=== PATIENT | female | born 1950 | race Caucasian/White ===

== ENCOUNTER → 2017-10-22 02:14 | Outpatient (CLI) | payer MEDICARE, BC, SELFPAY ==
--- NOTE | 2017-10-22 15:00 | DI.REPORT_ITS ---
SYMPTOMS/DIAGNOSIS: OSTEOPENIA, M85.88 DEXA SCAN: Routine examination. The lateral view of the spine shows no compression deformities. Evaluation of the left hip shows a total T score of -1.5 and a Z score of -0.2. This is consistent with osteopenia and an increased fracture risk. This compares with a total T score of -0.4 from 2007. Evaluation of the lumbar spine shows a total T score of -1.5 and a Z score of 0.3. This is consistent with osteopenia and an increased fracture risk. This compares with a total T score of 0.3 from 2007. IMPRESSION: Osteopenia in the left hip and lumbar spine.
== END ==
PROVIDERS: PCP Family Medicine; Visit Provider Family Medicine
DX: M85.88 Other specified disorders of bone density and structure, other site (principal)
CPT/HCPCS: 77080

== ENCOUNTER 2018-01-07 07:38 | Day surgery (SDC) | payer MEDICARE, BC, SELFPAY ==
--- NOTE | 2018-01-07 06:51 | W.COLOREPORT ---
Date of service: 01/07/18 Time of Service: : Colonoscopy Report Date of procedure: 01/07/18 Pre-op diagnosis general: Screening Colonoscopy Post-op diagnosis procedure note: same Procedure: Colonoscopy Surgeon: Leeanna Gilman Anesthesia proc note operative: MAC (Oswald Dize, JOSELINE and Jennifer Hartley CRNA/ ASA 2) Estimated blood loss (mL): 0 Pathology: none sent Complications: None Disposition: same day Indications: Mrs. Judd is a pleasant 67-year-old female who was seen in the office for a colonoscopy. Risks, benefits and complications were reviewed with her and she wished to proceed. No guarantees were given or implied. Prep: Miralax/Dulcolax Procedure Start Time: : Procedure End Time: : Retraction Time: 8 minutes Findings: Normal colon. very tortuous Procedure Description: After informed consent was obtained the patient was taken to the procedure room and placed in a left decubitous position. Monitors were applied and a time out was done. The patients name, date of , procedure, allergies to medications and metal in their body was reviewed. The patient was then sedated. Once sedated and comfortable a rectal exam was done. External exam was normal. Internal exam revealed a normal sphincter tone and no palpable masses. The scope was then introduced and retroflexed. No internal hemorrhoids were identified. The scope was then advanced to the cecum with some difficulty due to tortuousity of her colon. The TI and appendiceal orifice were identified. The prep was adequate. The scope was then slowly retracted over 8 minutes back into the rectum. The scope was removed and the patient was woken up and taken back to Same day surgery in stable condition. The patient tolerated the procedure well and there were no immediate complications. Follow up: The patient should follow up in 10 years unless they develop changes in bowel habits or other new gastrointestinal complaints.
--- NOTE | 2018-01-07 06:54 | PDOC.DSDIS_ITS ---
Discharge Plan Disposition Patient Disposition: HOME Condition: Good Discharge Details Reason For Visit: SCREENING Attending Provider: Leeanna Gilman Primary Care Provider: Katey Alejandro Home Meds and New Rx's Prescriptions: Continue levothyroxine [Synthroid] 50 MCG tablet 150 mcg PO DAILY RF: 0 ibuprofen 400 mg Tablet 2 tab PO PRN PRNRF: 0 Discharge Instructions Instructions: Colonoscopy (DC) Additional Instructions: Findings: Normal bowel Follow up: 10 years New Medications: none Please call if you develop: fevers >101.5 Nausea or Vomiting Abdominal pain that is not transient 1. Because there will be medication in your system for the next 24 hours, you may feel a little sleepy. Your coordination will be affected. Therefore: a. Do not drive or operate dangerous equipment for 24 hours. b. Do not drink alcohol beverages for 24 hours (not even beer). c. Plan to go home and rest for the day. 2. Generally there are no restrictions on your activity after a day or so has gone by, but you may feel a bit fatigued for a few days. 3 After you arrive home you may have a light meal and return to a normal diet as you can tolerate it without feeling sick to your stomach. 4. After surgery, you may feel pain or discomfort. This should be only transient , but if it persists please contact your doctor. 5. If there are any questions regarding the findings of your procedure, please feel free to contact your doctor. 6. If you are unable to contact your doctor with a problem, contact the hospital at [phone]. 7. Continue all your regular medications unless directed otherwise. I understand the above instructions and have no questions. Signature of Patient or Responsible Adult Escort Date/Time Name of Responsible Adult Escort Signature of Nurse Date/Time Stand Alone Forms: Colonoscopy Post Instructions, Nessa Lambert (DSU) Activity:: Activity as Tolerated Diet:: As Tolerated Discharge Orders Discharge Orders: Discharge Order (Routine); Ordered 01/07/18 Ordered By: Leeanna Gilman DS: Diagnosis Discharge Diagnosis (1) Normal colonoscopy: Status: Acute (2) S/P colonoscopy: Status: Acute
[2018-01-07 07:54] VITALS: BP 156/105; PULSE 77; RESP 16; TEMP 35.4; O2SAT 100
[2018-01-07] MEDS: Lactated Ringers 1,000 ML 80 ML IV (08:16)
[2018-01-07 10:27] VITALS: BP 141/62; PULSE 60; RESP 16; TEMP 35.7; O2SAT 100
== END 2018-01-07 10:50 | disposition home or self-care (01) ==
PROVIDERS: PCP Family Medicine; Visit Provider Surgery
PROC: 0DJD8ZZ Inspection of Lower Intestinal Tract, Via Natural or Artificial Opening Endoscopic (ICD-10-PCS; CPT 45378; principal; 2018-01-07 09:15)
DX: Z12.11 Encounter for screening for malignant neoplasm of colon (principal); K63.89 Other specified diseases of intestine
CPT/HCPCS: G0121

== ENCOUNTER → 2018-07-07 14:03 | Outpatient (BNVA) | payer MEDICARE, BC, SELFPAY | PROVIDERS: PCP Family Medicine; Visit Provider Nurse Practitioner Adult Health | DX: G56.22 Lesion of ulnar nerve, left upper limb (principal); E03.9 Hypothyroidism, unspecified | CPT/HCPCS: 95909; 99203; 99214 ==

== ENCOUNTER 2018-10-01 00:53 | Outpatient (CLI) | payer MEDICARE, BC, SELFPAY ==
--- NOTE | 2018-10-01 08:00 | DI.US_ITS ---
SYMPTOM/DIAGNOSIS: ABNL UTERINE BLEEDING, N93.9 PELVIC ULTRASOUND: Transabdominal and transvaginal exams were performed. The uterus is not well seen transabdominally. The uterus measures 5.1 by 2.7 by 3.3 cm. The myometrium appears heterogeneous. There is a 1 cm. posterior myometrial fibroid. A trace amount of fluid is seen within the endometrial cavity. The endometrium does not appear thickened. The ovaries are normal in size and show calcifications. No masses or cysts are seen. There is a prominent left renal pelvis. The right kidney is unremarkable. There is no free fluid in the cul-de-sac. IMPRESSION: Heterogeneous myometrium with small focal fibroid.
== END 2018-10-01 01:13 ==
PROVIDERS: PCP Family Medicine; Visit Provider Family Medicine
DX: N93.9 Abnormal uterine and vaginal bleeding, unspecified (principal); D25.9 Leiomyoma of uterus, unspecified; N85.8 Other specified noninflammatory disorders of uterus
CPT/HCPCS: 76830; 76856

== ENCOUNTER 2019-09-02 10:01 | Outpatient (REF) | payer MEDICARE, BC, SELFPAY ==
[2019-09-02 22:19] LABS: Anion Gap 8.6 mmol/L (3-11); BUN 8 mg/dL (7-18); CO2 28.4 mmol/L (21.0-32.0); CREATININE 0.64 mg/dL (0.55-1.02); Calcium 10.2 mg/dL (8.5-10.1); Calculated LDL 122 mg/dL (<100); Chloride 93 mmol/L (98-107); Cholesterol 228 mg/dL (<200); Glucose 88 mg/dL (74-106); HDL Cholesterol 98 mg/dL (40-60); Potassium 5.1 mmol/L (3.5-5.1); Sodium 130 mmol/L (136-145); TSH (W/Ref FT4) 0.29 uIU/mL (0.36-3.74); Triglyceride 44 mg/dL (<150)
[2019-09-03 10:13] LABS: ALT 36 U/L (14-59); AST 28 U/L (15-37); Albumin 4.8 g/dL (3.4-5.0); Alkaline Phosphatase 89 U/L (46-116)
== END 2019-09-02 10:21 ==
LOC: NCHCN 10:01
PROVIDERS: PCP Family Medicine
DX: I10 Essential (primary) hypertension (principal); E03.9 Hypothyroidism, unspecified
CPT/HCPCS: 80048; 80061; 82040; 84075; 84439; 84443; 84450; 84460

== ENCOUNTER 2019-09-16 10:17 | Outpatient (REF) | payer MEDICARE, BC, SELFPAY ==
[2019-09-16 19:56] LABS: Anion Gap 6.3 mmol/L (3-11); BUN 11 mg/dL (7-18); CO2 28.7 mmol/L (21.0-32.0); CREATININE 0.77 mg/dL (0.55-1.02); Calcium 9.5 mg/dL (8.5-10.1); Chloride 96 mmol/L (98-107); Glucose 87 mg/dL (74-106); Potassium 5.5 mmol/L (3.5-5.1); Sodium 131 mmol/L (136-145); TSH (W/Ref FT4) 0.46 uIU/mL (0.36-3.74)
== END 2019-09-16 10:37 ==
LOC: NCHCN 10:17
PROVIDERS: PCP Family Medicine
DX: I10 Essential (primary) hypertension (principal); E03.9 Hypothyroidism, unspecified
CPT/HCPCS: 80048; 84443

== ENCOUNTER 2019-09-21 16:47 | Outpatient (REF) | payer MEDICARE, BC, SELFPAY ==
[2019-09-21 21:29] LABS: HCT 41.1 % (36.0-46.0); HGB 13.8 g/dL (12.0-15.5); Mean Corp. HGB Concentration 33.6 g/dL (32.0-36.0); Mean Corpuscular Hemoglobin 30.9 pg (27.0-33.0); Mean Corpuscular Volume 91.9 fL (80-95); Mean Platelet Volume 10.1 fL (8.0-11.0); Platelet Count 255 x1000/uL (130-400); RBC 4.47 m/cumm (4.00-5.20); RBC Distribution Width 12.6 % (11.7-14.6); White Blood Cell Count 4.39 k/cumm (4.4-10.8)
[2019-09-21 21:50] LABS: Bilirubin Negative (Negative); Blood Negative (Negative); Clarity Clear (Clear); Glucose Negative (Negative); Ketones Negative (Negative); Leukocyte Esterase Negative (Negative); Nitrite Negative (Negative); Specific Gravity 1.015 (1.005-1.025); Urobilinogen 0.2 EU/dL (Up TO 0.2)
[2019-09-21 21:59] LABS: Bacteria Negative HPF (Negative); C & S Indicated? No; Casts Negative LPF (Negative); Crystals Negative HPF (Negative); Epithelial Cells Rare HPF (Negative); Mucus Negative (Negative); RBC Negative HPF (0-2); WBC Negative HPF (0-5)
[2019-09-21 22:20] LABS: Sodium, Urine 29 mmol/L
[2019-09-22 18:09] LABS: Osmolality, Urine 156 mOsm/kg (150-1,150)
== END 2019-09-21 17:07 ==
LOC: NCHCN 16:47
PROVIDERS: PCP Family Medicine
DX: E87.5 Hyperkalemia (principal); I10 Essential (primary) hypertension
CPT/HCPCS: 82533; 83935; 85027; 81003; 81015; 84300

== ENCOUNTER 2019-09-30 12:01 | Outpatient (REF) | payer MEDICARE, BC, SELFPAY ==
[2019-09-30 20:57] LABS: Anion Gap 8.6 mmol/L (3-11); BUN 12 mg/dL (7-18); CO2 27.4 mmol/L (21.0-32.0); CREATININE 0.74 mg/dL (0.55-1.02); Calcium 9.9 mg/dL (8.5-10.1); Calculated LDL 118 mg/dL (<100); Chloride 97 mmol/L (98-107); Cholesterol 219 mg/dL (<200); Glucose 87 mg/dL (74-106); HDL Cholesterol 92 mg/dL (40-60); Potassium 5.1 mmol/L (3.5-5.1); Sodium 133 mmol/L (136-145); TSH (W/Ref FT4) 1.07 uIU/mL (0.36-3.74); Triglyceride 47 mg/dL (<150)
[2019-09-30 21:15] LABS: FREE T4 1.29 ng/dL (0.76-1.46)
== END 2019-09-30 12:21 ==
LOC: NCHCN 12:01
PROVIDERS: PCP Family Medicine
DX: I10 Essential (primary) hypertension (principal); E87.1 Hypo-osmolality and hyponatremia; E87.5 Hyperkalemia
CPT/HCPCS: 80048; 80061; 84439; 84443

== ENCOUNTER 2019-11-16 09:59 | Outpatient (REF) | payer MEDICARE, BC, SELFPAY ==
[2019-11-16 21:10] LABS: Anion Gap 6.8 mmol/L (3-11); BUN 10 mg/dL (7-18); CO2 29.2 mmol/L (21.0-32.0); CREATININE 0.74 mg/dL (0.55-1.02); Calcium 9.7 mg/dL (8.5-10.1); Chloride 96 mmol/L (98-107); Glucose 61 mg/dL (74-106); Potassium 4.1 mmol/L (3.5-5.1); Sodium 132 mmol/L (136-145); TSH (W/Ref FT4) 5.68 uIU/mL (0.36-3.74)
[2019-11-16 21:40] LABS: FREE T4 1.19 ng/dL (0.76-1.46)
== END 2019-11-16 10:19 ==
LOC: NCHCN 09:59
PROVIDERS: PCP Family Medicine
DX: E03.9 Hypothyroidism, unspecified (principal); E87.5 Hyperkalemia; E87.1 Hypo-osmolality and hyponatremia; I10 Essential (primary) hypertension
CPT/HCPCS: 80048; 84439; 84443

== ENCOUNTER 2019-12-30 11:53 | Outpatient (REF) | payer MEDICARE, BC, SELFPAY ==
[2019-12-30 22:56] LABS: TSH (W/Ref FT4) 0.96 uIU/mL (0.36-3.74)
== END 2019-12-30 12:13 ==
LOC: NCHCN 11:53
PROVIDERS: PCP Family Medicine
DX: E03.9 Hypothyroidism, unspecified (principal)
CPT/HCPCS: 84443

== ENCOUNTER 2020-02-04 03:44 | Outpatient (CLI) | payer MEDICARE, BC, SELFPAY ==
--- NOTE | 2020-02-04 | DI.US_ITS ---
EXAM: US CAROTID CLINICAL HISTORY: SYNCOPE,R55 TECHNIQUE: Ultrasound performed using standard protocol. COMPARISON: US US PELVIS TRANSVAGINAL from 10/01/2018 FINDINGS: Bilateral duplex carotid ultrasound was performed according to the usual protocol. There is bilateral antegrade vertebral flow. There is no visible atheromatous plaque in the carotid circulation. Flow velocities in the common, internal, and external carotid arteries are within normal limits bilat erally. IMPRESSION: No evidence of a hemodynamically significant carotid stenosis. DATA REPOSITORY:
== END 2020-02-04 04:04 ==
PROVIDERS: PCP Family Medicine
DX: R55 Syncope and collapse (principal)
CPT/HCPCS: 93880

== ENCOUNTER 2020-02-17 15:40 | Outpatient (CLI) | payer MEDICARE, BC, SELFPAY ==
--- NOTE | 2020-02-17 | DI.RAD_ITS ---
EXAM: XR KNEE RT 3V AP,LAT,NATALEE CLINICAL HISTORY: KNEE EFFUSION RT M25.461. TECHNIQUE: 2D digital imaging was performed. COMPARISON: No exams were available for comparison FINDINGS: BONES: There is a cortical irregularity in the posterior aspect of the patella seen on the lateral vi ew suspicious for nondisplaced fracture. There is a cortical sclerotic lesion at the posterior aspec t of the proximal tibia best appreciated on the lateral view. JOINTS: The knee is normally aligned. There is a joint effusion. SOFT TISSUE: Normal. IMPRESSION: 1. Findings suspicious for an acute nondisplaced fracture of the patella best appreciated on the late ral view. 2. Joint effusion. 3. Sclerotic cortical lesion at the posterior aspect of the proximal tibia. This area is nonspecific . Further evaluation with an MRI should be considered. DATA REPOSITORY: RADIATION DOSE DELIVERED:
--- NOTE | 2020-02-17 16:46 | DI.VRAD_ITS ---
PROCEDURE INFORMATION: Exam: XR Right Knee Exam date and time: 02/17/2020 3:51 PM Age: 69 years old Clinical indication: Injury or trauma; Fall; Blunt trauma; Knee; Right TECHNIQUE: Imaging protocol: XR Right knee. Views: 3 views. COMPARISON: No relevant images were readily available for comparison purposes. FINDINGS: Bones/joints: Mild osteoarthritic changes of the knee. There is a small suprapatellar effusion. There is cortical irregularity along the inferior and posterior aspect of the patella suspicious for nondisplaced fracture. This is best seen on the lateral view. There is cortical irregularity along the posterior aspect of the proximal tibia also best seen on the lateral projection. Soft tissues: Unremarkable soft tissues. IMPRESSION: 1. Possible acute nondisplaced fracture of the patella. 2. Small suprapatellar effusion. 3. Cortical irregularity along the posterior aspect of the tibia is nonspecific and indeterminate and could be related to stress related injury. Further evaluation with MRI is recommended. Dictated and Authenticated by: Shadi Wood MD. Ordering:MARYBETH Garcia MD
== END 2020-02-17 16:00 ==
PROVIDERS: PCP Family Medicine; Visit Provider Family Medicine
DX: M25.461 Effusion, right knee (principal); R93.6 Abnormal findings on diagnostic imaging of limbs
CPT/HCPCS: 73562

== ENCOUNTER 2020-02-18 09:15 | Outpatient (CLI) | payer MEDICARE, BC, SELFPAY | END 2020-02-18 09:35 | PROVIDERS: PCP Family Medicine; Visit Provider Physician Assistant | DX: S82.001A Unspecified fracture of right patella, initial encounter for closed fracture (principal); W19.XXXA Unspecified fall, initial encounter | CPT/HCPCS: 99214 ==

== ENCOUNTER 2020-03-02 10:23 | Outpatient (CLI) | payer MEDICARE, BC, SELFPAY ==
--- NOTE | 2020-03-02 10:00 | DI.RAD_ITS ---
EXAM: XR KNEE RT 4V AP,LAT,NATALEE,PAT CLINICAL HISTORY: F/u. TECHNIQUE: 2D digital imaging was performed. COMPARISON: CR,XR XR KNEE RT 3V AP,LAT,NATALEE from 02/17/2020 FINDINGS: There is no evidence of acute fracture. Small joint effusion noted. 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 There is no distraction. Mild-moderate degenerative changes evident in the medial and patellof emoral compartments. Again noted is an eccentric lung to truly orientated posteriorly located bone lesion at the metaphysi s-diaphysis junction of the tibia. This appears unchanged. If clinically indicated could be further studied with MRI ensure that this is not an aggressive bone. IMPRESSION: Healing patellar fracture site, as above. Unchanged bone lesion in the proximal tibia. See above. DATA REPOSITORY: RADIATION DOSE DELIVERED:
== END 2020-03-02 10:43 ==
PROVIDERS: PCP Family Medicine; Referring Provider Family Medicine; Visit Provider Physician Assistant
DX: S82.091A Other fracture of right patella, initial encounter for closed fracture (principal); S82.001D Unspecified fracture of right patella, subsequent encounter for closed fracture with routine healing; W19.XXXD Unspecified fall, subsequent encounter
CPT/HCPCS: 99213; 73564

== ENCOUNTER 2020-04-14 11:56 | Outpatient (CLI) | payer MEDICARE, BC, SELFPAY ==
--- NOTE | 2020-04-14 10:08 | DI.RAD_ITS ---
EXAM: XR KNEE RT 3V AP,LAT,NATALEE CLINICAL HISTORY: F/U FRACTURE. TECHNIQUE: 2D digital imaging was performed. COMPARISON: CR XR KNEE RT 4V AP,LAT,NATALEE,PAT from 03/02/2020 FINDINGS: There is no evidence of fracture nor prominent joint effusion. Significant degenerative changes are evident in the medial compartment, similar to previous. Both joint space narrowing and small margina l osteophytes at this level. Also further healing at the level of the patellar fracture site Again noted is a previously described eccentric posteriorly located sclerotic bone lesion at the meta physis-diaphysis junction of the proximal tibia, again unchanged. If clinically indicated this can b e further studied with MRI to ensure that this is not an aggressive bone lesion. IMPRESSION: DATA REPOSITORY: RADIATION DOSE DELIVERED:
== END 2020-04-14 11:57 | disposition home or self-care (01) ==
LOC: DIORS 11:56
PROVIDERS: PCP Family Medicine; Referring Provider Family Medicine; Visit Provider Student in an Organized Health Care Education/Training Program
DX: S82.001D Unspecified fracture of right patella, subsequent encounter for closed fracture with routine healing (principal); W19.XXXD Unspecified fall, subsequent encounter
CPT/HCPCS: 73562; 99213

== ENCOUNTER 2020-11-04 11:50 | Outpatient (REF) | payer MEDICARE, BC, SELFPAY ==
[2020-11-04 21:16] LABS: Anion Gap 5.2 mmol/L (3-11); BUN 14 mg/dL (7-18); CO2 30.8 mmol/L (21.0-32.0); CREATININE 0.7 mg/dL (0.55-1.02); Chloride 95 mmol/L (98-107); Glucose 83 mg/dL (74-106); Potassium 4.4 mmol/L (3.5-5.1); Sodium 131 mmol/L (136-145); TSH (W/Ref FT4) 0.83 uIU/mL (0.36-3.74)
== END 2020-11-04 11:51 | disposition home or self-care (01) ==
LOC: NCHCN 11:50
PROVIDERS: Visit Provider Nurse Practitioner Family
DX: E03.9 Hypothyroidism, unspecified (principal); E87.1 Hypo-osmolality and hyponatremia
CPT/HCPCS: 80048; 84443

== ENCOUNTER 2020-11-30 11:45 | Outpatient (REF) | payer MEDICARE, BC, SELFPAY ==
[2020-11-30 20:06] LABS: ESR 4 mm/hr (0-30)
[2020-11-30 20:14] LABS: Iron 100 ug/dL (50-170); Total Iron Binding Capacity 337 ug/dL (250-450); Transferrin Sat 30 % (15-50)
== END 2020-11-30 11:46 | disposition home or self-care (01) ==
LOC: NCHCN 11:45
PROVIDERS: Visit Provider Nurse Practitioner Family
DX: R51.9 Headache, unspecified (principal); R53.83 Other fatigue
CPT/HCPCS: 85652; 83540; 83550

== ENCOUNTER 2020-12-02 10:21 | Outpatient (CLI) | payer MEDICARE, BC, SELFPAY ==
--- NOTE | 2020-12-02 10:20 | DI.RAD_ITS ---
Exam(s) XR KNEE RT 3V AP,LAT,NATALEE EXAM: XR KNEE RT 3V AP,LAT,NATALEE CLINICAL HISTORY: follow-up of bone lesion TECHNIQUE: COMPARISON: CR,XR XR KNEE RT 3V AP,LAT,NATALEE from 02/17/2020 CR,XR XR KNEE RT 3V AP,LAT,NATALEE from 02/17/2020 CR XR KNEE RT 3V AP,LAT,NATALEE from 04/14/2020 FINDINGS: Three views were obtained. There is moderate narrowing medial tibiofemoral cartilaginous joint space . Slight marginal osteophytes are noted at the medial tibiofemoral joint and patellofemoral joint. Previously described sclerotic proximal tibial metaphyseal lytic lesion is unchanged comparison with prior examination of January 2020. This is likely to represent a benign lesion, malignancy not enti rely excluded, follow-up radiographs suggested in 6 months. IMPRESSION: RADIATION DOSE DELIVERED: Total DLP
== END 2020-12-02 10:22 | disposition home or self-care (01) ==
LOC: DIORS 10:21
PROVIDERS: PCP Nurse Practitioner Family; Referring Provider Nurse Practitioner Family; Visit Provider Student in an Organized Health Care Education/Training Program
DX: M89.8X6 Other specified disorders of bone, lower leg (principal); S82.001D Unspecified fracture of right patella, subsequent encounter for closed fracture with routine healing; W19.XXXD Unspecified fall, subsequent encounter
CPT/HCPCS: 73562; 99213

== ENCOUNTER 2021-03-03 10:44 | Outpatient (REF) | payer MEDICARE, BC, SELFPAY ==
[2021-03-03 14:11] LABS: Abs Immature Grans 0.01 10^3/uL (0.0-0.06); Absolute Basophil Count 0.06 10^3/uL (0.0-0.2); Absolute Eosinophil Count 0.11 10^3/uL (0.0-0.7); Absolute Lymphocyte Count 1.96 10^3/uL (1.2-3.4); Absolute Monocyte Count 0.64 10^3/uL (0.1-0.8); Absolute Neutrophil Count 2.74 10^3/uL (1.2-6.7); Basophils % 1.1; HGB 13.9 g/dL (11.2-15.7); Immature Grans % 0.2; Lymphocytes % 35.5; MCH 30.7 pg (27.0-33.0); MCHC 33.1 % (32.0-36.0); MCV 92.7 fL (80-95); MPV 10.1 fL (8.0-11.0); Monocytes % 11.6; Neutrophils % 49.6; Nucleated RBC 0 %; Platelet Count 258 10^3/uL (130-400); RBC 4.53 10^6/uL (3.93-5.22); RDW 12.1 % (11.7-14.6); RDW-SD 41.4 fL; WBC 5.52 10^3/uL (4.4-10.8)
[2021-03-03 14:29] LABS: ALT 30 U/L (14-59); AST 22 U/L (15-37); Albumin 3.9 g/dL (3.4-5.0); Alkaline Phosphatase 94 U/L (46-116); Anion Gap 6.8 mmol/L (3-11); BUN 9 mg/dL (7-18); Bilirubin, Total 0.5 mg/dL (0.2-1.0); CO2 29.2 mmol/L (21.0-32.0); CREATININE 0.7 mg/dL (0.55-1.02); Calcium 9.8 mg/dL (8.5-10.1); Chloride 96 mmol/L (98-107); Glucose 76 mg/dL (74-106); Potassium 5.2 mmol/L (3.5-5.1); Sodium 132 mmol/L (136-145)
[2021-03-03 15:06] LABS: Iron 89 ug/dL (50-170); Total Iron Binding Capacity 353 ug/dL (250-450); Transferrin Sat 25 % (15-50)
[2021-03-06 05:17] LABS: Vitamin D 25 Total 58.1 ng/mL (30-100)
== END 2021-03-03 10:45 | disposition home or self-care (01) ==
LOC: NCHCN 10:44
PROVIDERS: Visit Provider Nurse Practitioner Family
DX: R53.83 Other fatigue (principal); M85.88 Other specified disorders of bone density and structure, other site
CPT/HCPCS: 80053; 82306; 83540; 83550; 85025

== ENCOUNTER 2021-04-15 12:13 | Outpatient (REF) | payer MEDICARE, BC, SELFPAY ==
[2021-04-15 22:28] LABS: Abs Immature Grans 0.01 10^3/uL (0.0-0.06); Absolute Basophil Count 0.07 10^3/uL (0.0-0.2); Absolute Eosinophil Count 0.06 10^3/uL (0.0-0.7); Absolute Lymphocyte Count 1.83 10^3/uL (1.2-3.4); Absolute Monocyte Count 0.53 10^3/uL (0.1-0.8); Absolute Neutrophil Count 2.96 10^3/uL (1.2-6.7); Basophils % 1.3; Eosinophils % 1.1; HCT 42.4 % (36.0-46.0); HGB 14.1 g/dL (11.2-15.7); Immature Grans % 0.2; Lymphocytes % 33.5; MCH 30.3 pg (27.0-33.0); MCHC 33.3 % (32.0-36.0); MPV 10.7 fL (8.0-11.0); Monocytes % 9.7; Neutrophils % 54.2; Nucleated RBC 0 %; Platelet Count 253 10^3/uL (130-400); RBC 4.66 10^6/uL (3.93-5.22); RDW 12.1 % (11.7-14.6); RDW-SD 40.4 fL; WBC 5.46 10^3/uL (4.4-10.8)
[2021-04-15 22:38] LABS: ALT 27 U/L (14-59); AST 22 U/L (15-37); Albumin 4.1 g/dL (3.4-5.0); Alkaline Phosphatase 119 U/L (46-116); Anion Gap 6.3 mmol/L (3-11); BUN 8 mg/dL (7-18); Bilirubin, Total 0.5 mg/dL (0.2-1.0); CO2 29.7 mmol/L (21.0-32.0); CREATININE 0.6 mg/dL (0.55-1.02); Calcium 10.1 mg/dL (8.5-10.1); Chloride 94 mmol/L (98-107); Glucose 91 mg/dL (74-106); Potassium 5.6 mmol/L (3.5-5.1); Sodium 130 mmol/L (136-145); Total Protein 7.6 g/dL (6.4-8.2)
== END 2021-04-15 12:14 | disposition home or self-care (01) ==
LOC: LBN 12:13
PROVIDERS: Visit Provider Family Medicine
DX: R10.9 Unspecified abdominal pain (principal)
CPT/HCPCS: 80053; 85025

== ENCOUNTER 2021-05-04 01:38 | Outpatient (CLI) | payer MEDICARE, BC, SELFPAY ==
--- NOTE | 2021-05-04 09:20 | DI.CT_ITS ---
Exam(s) CT ABDOMEN PELVIS W EXAM: CT ABDOMEN PELVIS W INDICATION: ABD PAIN R10.9. COMPARISON: No exams were available for comparison TECHNIQUE: FINDINGS: CT examination of the abdomen and pelvis was performed with a bolus infusion of 100 cc of Omnipaque 3 50. Images obtained through the lung bases are unremarkable. The liver is unremarkable in appearance. Gallbladder and bile ducts are CT normal. Pancreas appears normal. Spleen is unremarkable in appearance. Adrenals appear normal. The kidneys are unremarkable with no evidence of hydronephrosis, nephrolithiasis, or renal mass.. Ur inary bladder is under distended but the wall of the urinary bladder is probably thickened. This is a nonspecific finding but could represent cystitis period. Abdominal aorta is of normal diameter and no major vascular abnormality is seen. No abdominal wall hernia. No abdominal or pelvic adenopathy. [employer] STRATEGY MANAGER structures appear intact. Appendix is normal. No evidence of diverticulitis or bowel obstruction. IMPRESSION: Probable urinary bladder wall thickening, this is a finding which may be associated with cystitis, pl ease correlate clinically. No other significant findings. RADIATION DOSE DELIVERED: 656.9mGy.cm Total DLP 656.9mGy.cm Total DLP !Error CTDIvol RADIATION OPTIMIZATION: All CT scans at this facility use at least one of these dose optimization te chniques: automated exposure control; mA and/or kV adjustment per patient size (includes targeted exa ms where dose is matched to clinical indication); or iterative reconstruction.
[2021-05-04] MEDS: Omnipaque 350 MG/ML 100 ML BTL IJ (09:22)
[2021-05-04] MEDS: Breeza Beverage 473 ML BTL PO (09:22)
[2021-05-04] MEDS: Omnipaque 350 MG/ML 50 ML BTL IJ (09:23)
== END 2021-05-04 01:58 ==
PROVIDERS: Visit Provider Family Medicine
DX: R10.9 Unspecified abdominal pain (principal); R93.5 Abnormal findings on diagnostic imaging of other abdominal regions, including retroperitoneum
CPT/HCPCS: 74177; J3490; Q9967

== ENCOUNTER 2021-05-26 09:43 | Outpatient (CLI) | payer MEDICARE, BC, SELFPAY ==
--- NOTE | 2021-05-26 09:30 | DI.RAD_ITS ---
Exam(s) XR KNEE RT 2V AP,LAT EXAM: XR KNEE RT 2V AP,LAT CLINICAL HISTORY: F/U LESION OR RIGHT LOWER LEG. TECHNIQUE: 2D digital imaging was performed of the right knee. Two views obtained. AP and lateral views were obtained. COMPARISON: CR XR KNEE RT 3V AP,LAT,NATALEE from 12/02/2020 FINDINGS: BONES: No acute fracture is present. The lytic and sclerotic lesion in the posterior medial proximal metaphysis of the right tibia is unchanged. JOINTS: The knee is normally aligned. No joint effusion is seen. There are stable moderate degenerati ve changes in the medial femoral tibial joint space with joint space narrowing and periarticular spur ring. Mild spurring is seen at the posterior patella. No joint effusion is seen. SOFT TISSUE: Normal. IMPRESSION: Stable proximal tibial metaphyseal lesion. The lesion has been stable and and is likely benign. Fol low-up plain film in 6 months should be considered. If further imaging is warranted, bone scan or MR I may be considered. DATA REPOSITORY: RADIATION DOSE DELIVERED:
== END 2021-05-26 09:44 | disposition home or self-care (01) ==
LOC: DIORS 09:43
PROVIDERS: PCP Nurse Practitioner Family; Referring Provider Nurse Practitioner Family; Visit Provider Student in an Organized Health Care Education/Training Program
DX: M89.8X6 Other specified disorders of bone, lower leg; S82.001D Unspecified fracture of right patella, subsequent encounter for closed fracture with routine healing; X58.XXXD Exposure to other specified factors, subsequent encounter
CPT/HCPCS: 99213; 73560

== ENCOUNTER → 2021-07-05 00:41 | Outpatient (CLI) | payer MEDICARE, BC, SELFPAY | PROVIDERS: PCP Nurse Practitioner Family; Visit Provider Nurse Practitioner Family ==

== ENCOUNTER 2021-09-15 02:19 | Outpatient (CLI) | payer MEDICARE, BC, SELFPAY ==
[2021-09-15 15:08] LABS: HCT 39.1 % (36.0-46.0); HGB 13.4 g/dL (11.2-15.7); MCH 31.5 pg (27.0-33.0); MCHC 34.3 % (32.0-36.0); MCV 92 fL (80-95); MPV 9.5 fL (8.0-11.0); Platelet Count 236 10^3/uL (130-400); RBC 4.26 10^6/uL (3.93-5.22); RDW 12.5 % (11.7-14.6); RDW-SD 41.9 fL; WBC 6.94 10^3/uL (4.4-10.8)
== END 2021-09-15 02:20 | disposition home or self-care (01) ==
LOC: LBO 02:22
PROVIDERS: PCP Nurse Practitioner Family; Visit Provider Nurse Practitioner Family
DX: R06.02 Shortness of breath (principal)
CPT/HCPCS: 36415; 85027

== ENCOUNTER 2021-09-22 02:03 | Outpatient (CLI) | payer MEDICARE, BC, SELFPAY ==
[2021-09-22 10:12] LABS: Anion Gap 4.4 mmol/L (3-11); BUN 10 mg/dL (7-18); CO2 30.6 mmol/L (21.0-32.0); CREATININE 0.6 mg/dL (0.55-1.02); Calcium 9.7 mg/dL (8.5-10.1); Chloride 92 mmol/L (98-107); Glucose 63 mg/dL (74-106); Sodium 127 mmol/L (136-145); TSH (W/Ref FT4) 1.95 uIU/mL (0.36-3.74)
[2021-09-22 10:23] LABS: D-Dimer 478 ng/mlFEU (<500)
== END 2021-09-22 02:04 | disposition home or self-care (01) ==
LOC: LBO 02:03
PROVIDERS: PCP Nurse Practitioner Family; Visit Provider Nurse Practitioner Family
DX: E03.9 Hypothyroidism, unspecified (principal); R06.02 Shortness of breath; E87.5 Hyperkalemia; E87.1 Hypo-osmolality and hyponatremia
CPT/HCPCS: 36415; 80048; 84443; 85379

== ENCOUNTER → 2021-10-24 01:55 | Outpatient (CLI) | payer MEDICARE, BC, SELFPAY ==
--- NOTE | 2021-10-24 07:30 | DI.US_ITS ---
APPROVED REPORT EXAM: Comprehensive 2D, Doppler, and color-flow Echocardiogram Patient Location: Out-Patient Surgery Specialist: Mikki Lopez RDCS (AE) Indications: SOB Other Information Study Quality: Good Conclusion Normal left ventricular wall thickness and chamber size. Estimated ejection fraction is 60%. Wall m otion is normal Normal right ventricular size and systolic function Both atria are normal in size Trileaflet aortic valve with mild to moderate regurgitation Normal mitral valve with mild to moderate regurgitation Normal tricuspid valve with trace regurgitation. Estimated right ventricular systolic pressure is 20 mmHg Dilated aortic root and ascending aorta Wall motion Left Ventricle The left ventricle is normal size. The left ventricular systolic function is normal. The left ventric ular ejection fraction is within the normal range. There is normal left ventricular wall thickness. T here is normal LV segmental wall motion. There is no ventricular septal defect visualized. LVEF is 60 %. Right Ventricle The right ventricle is normal size. The right ventricular systolic function is normal. The RVSP is 20 .5mmHg. Atria The left atrium size is normal. The right atrium size is normal. The interatrial septum is intact wit h no evidence for an atrial septal defect. Aortic Valve The aortic valve is normal in structure. Aortic valve is trileaflet. There is no aortic valvular sten osis. Mild to moderate aortic regurgitation. Mitral Valve The mitral valve is normal in structure. No evidence of mitral valve stenosis. Mild to moderate juan c l regurgitation. Tricuspid Valve The tricuspid valve is normal in structure. There is no tricuspid valve stenosis. Trace tricuspid reg urgitation. Pulmonic Valve The pulmonary valve is normal in structure. There is no pulmonic valvular stenosis. Trace pulmonic re gurgitation. Great Vessels Aortic root is mildly dilated. The ascending aorta is mildly dilated. Aortic arch is not well visuali zed. IVC is normal in size and collapses >50% with inspiration. Pericardium Trivial pericardial effusion. 2D Dimensions IVSD d PLAX 0.98 cm F: 0.6-1.0 LV Vol A2C d MOD 128.7 mL LVPW d PLAX 0.96 cm F: 0.6 - 1.0 LV Vol A4C d MOD 79.9 mL LVID d PLAX 4.22 cm F: 3.8 - 5.2 LA vol/ BSA A2C s A-L 29.3 mL/m2 LVDs 2.85 cm F: 2.2 - 3.5 LA vol/ BSA A4C s A-L 25.8 mL/m2 Ao Root d 3.46 cm F: 2.7 - 3.3 LA Vol/ BSA Biplane s A-L 28.1 mL/m2 RA Area A4C 13.32 cm2 LA Area A4C s MOD 15.84 cm2 RA Vol/ BSA A4C s A-L 20.8 mL/m2 LA Area A2C s MOD 17.23 cm2 Ao Asc Diam d 3.61 cm F: 2.3 - 3.1 LV EF A4C MOD 60.6 % LV EF Teichholz 60.7 % LV EF A2C MOD 59.0 % LVEF (Valdez's) 60.83 % F: 54 - 74 LV EF Biplane MOD 60.8 % LV Volume 86.64 mL F: 46 - 106 SV 66.10 mL LV Volume Index 51.57 mL/m2 F: 29 - 61 SV Index 39.31 mL/m2 LV Vol Biplane MOD 108.7 mL FS 32.15 % M-Mode TAPSE 2.16 cm (M/F) >1.7 LV Diastology MV E' medial 0.060 (>0.07 m/s) E/A Ratio 1.3 LV E/e MED 10.00 (<14) MV E Vmax 0.60 (0.4-1.3 m/s) MV E' lateral 0.047 (>0.1 m/s) MV A Vmax 0.45 (0.4-1.3 m/s) LV E/e LAT 12.70 (<14) MV E/A Ratio 1.32 MV E/E' medial 10.00 MV E/E' lateral 12.71 Aortic Valve LVOT Area 2.56 cm2 AoV Area Vmax 2.03 cm2 LVOT Vmax 0.76 m/s AoV Area/ BSA (Vmax) 1.21 cm2/m2 LVOT Mean Dylon. 0.47 m/s MARINO Mean Dylon. 1.79 cm2 LVOT Peak Grad 2.3 mmHg MARINO Mean Dylon. Index 1.07 cm2/m2 LVOT Mean Grad 1.1 mmHg AR DT 5186 msec LVOT VTI 0.182 m AR PHT 1504 msec LVOT Diam s 1.80 cm AoV Vmax 0.96 m/s Velocity Ratio 0.79 AoV Mean Dylon. 0.67 m/s AoV Peak Grad 3.7 mmHg LVOT SV 46.59 mL AoV Mean Grad 2.0 mmHg AoV VTI 0.204 m AoV Area VTI 2.29 cm2 AoV Area/ BSA (VTI) 1.36 cm/m2 Mitral Valve MV DT 171 (160-240 msec) MV PHT 50 msec MV Area PHT 4.43 cm2 MV VTI 0.235 m MV Area VTI 1.99 (4.0-6.0 cm2) Pulmonary Valve PV Vmax 0.79 (0.5-1.5 m/s) RVOT Peak Gr. 1.25 mmHg PV Peak Grad 2.5 mmHg RVOT Mean Gr. 0.55 mmHg PV Mean Grad 1.3 mmHg RVOT VTI 0.118 m PV VTI 0.161 m RVOT Vmax 0.56 m/s Tricuspid Valve TR Peak Grad 17.4 mmHg TR Vmax 2.09 m/s RA Pressure 3.00 mmHg RVSP (TR) 20.5 mmHg
== END ==
PROVIDERS: PCP Nurse Practitioner Family; Visit Provider Nurse Practitioner Family
DX: R06.02 Shortness of breath (principal)
CPT/HCPCS: 93306

== ENCOUNTER 2021-12-05 15:13 | Outpatient (REF) | payer MEDICARE, BC, SELFPAY ==
[2021-12-05 19:32] LABS: Anion Gap 6.8 mmol/L (3-11); BUN 15 mg/dL (7-18); CO2 30.2 mmol/L (21.0-32.0); CREATININE 0.6 mg/dL (0.55-1.02); Chloride 94 mmol/L (98-107); Glucose 93 mg/dL (74-106); Potassium 4.2 mmol/L (3.5-5.1); Sodium 131 mmol/L (136-145)
== END 2021-12-05 15:14 | disposition home or self-care (01) ==
LOC: NCHCN 15:13
PROVIDERS: PCP Nurse Practitioner Family; Visit Provider Nurse Practitioner Family
DX: I10 Essential (primary) hypertension (principal); E87.1 Hypo-osmolality and hyponatremia; E87.5 Hyperkalemia
CPT/HCPCS: 80048

== ENCOUNTER → 2021-12-21 03:15 | Outpatient (CLI) | payer MEDICARE, BC, SELFPAY ==
--- NOTE | 2021-12-21 08:30 | DI.RAD_ITS ---
Exam(s) XR CHEST 2V PA LATERAL EXAM: XR CHEST 2V PA LATERAL CLINICAL HISTORY: SOB, R06.02 TECHNIQUE: 2D digital imaging was performed of the chest. Two images were obtained. PA and lateral views were obtained. COMPARISON: No exams were available for comparison FINDINGS: MEDIASTINUM: Normal. HEART: Normal. PULMONARY VASCULATURE: Normal. LUNGS: Clear. PLEURAL SPACE: No pleural effusion or pneumothorax. BONE:Within normal limits for the patient's age. There is a mild right convex scoliosis. OTHER FINDINGS:Normal. IMPRESSION: No acute pulmonary findings. DATA REPOSITORY: RADIATION DOSE DELIVERED:
== END ==
PROVIDERS: PCP Nurse Practitioner Family; Visit Provider Nurse Practitioner Family
DX: R06.02 Shortness of breath (principal)
CPT/HCPCS: 71046

== ENCOUNTER 2022-01-11 11:43 | Outpatient (CLI) | payer MEDICARE, BC, SELFPAY ==
--- NOTE | 2022-01-11 11:00 | DI.RAD_ITS ---
Exam(s) XR KNEE RT 2V AP,LAT EXAM: XR KNEE RT 2V AP,LAT CLINICAL HISTORY: F/U BONE LESION TECHNIQUE: COMPARISON: CR XR KNEE RT 2V AP,LAT from 05/26/2021 FINDINGS: Two views were obtained and show previously described proximal metaphyseal cortical sclerotic/lytic a andre of the tibia, unchanged in appearance comparison with prior examination of May 26. No additio nal significant findings. IMPRESSION: Stable probably benign proximal metaphyseal lesion. Follow-up radiographs suggested in 12 months. RADIATION DOSE DELIVERED: Total DLP
== END 2022-01-11 11:44 | disposition home or self-care (01) ==
LOC: DIORS 11:44
PROVIDERS: PCP Nurse Practitioner Family; Referring Provider Nurse Practitioner Family; Visit Provider Student in an Organized Health Care Education/Training Program
DX: M89.8X8 Other specified disorders of bone, other site (principal)
CPT/HCPCS: 99213; 73560

== ENCOUNTER 2022-03-29 02:09 | Outpatient (CLI) | payer MEDICARE, BC, SELFPAY ==
--- NOTE | 2022-03-29 | DI.RAD_ITS ---
Exam(s) XR HIP RT COMPLETE AP PELVIS EXAM: XR HIP RT COMPLETE AP PELVIS INDICATION: RT HIP JOINT PAIN M25.551. COMPARISON: No exams were available for comparison TECHNIQUE: 2D digital imaging was performed. Three views. FINDINGS: Mild narrowing of the right hip joint space and mild periarticular spurring. No flattening of the fe moral head. Left hip joint space is maintained. There is mild spurring from the left acetabulum. T here are mild degenerative changes of the SI joints. No bony erosions. IMPRESSION: Skie-jc-amytylge degenerative changes of the right hip. DATA REPOSITORY: RADIATION DOSE DELIVERED:
== END 2022-03-29 02:29 ==
LOC: DI 02:09
PROVIDERS: PCP Nurse Practitioner Family; Visit Provider Family Medicine
DX: M16.11 Unilateral primary osteoarthritis, right hip (principal)
CPT/HCPCS: 73502

== ENCOUNTER 2022-06-14 12:40 | Outpatient (REF) | payer MEDICARE, BC, SELFPAY ==
[2022-06-14 14:42] LABS: Abs Immature Grans 0.01 10^3/uL (0.0-0.06); Absolute Basophil Count 0.04 10^3/uL (0.0-0.2); Absolute Eosinophil Count 0.08 10^3/uL (0.0-0.7); Absolute Lymphocyte Count 1.93 10^3/uL (1.2-3.4); Absolute Monocyte Count 0.45 10^3/uL (0.1-0.8); Absolute Neutrophil Count 2.48 10^3/uL (1.2-6.7); Basophils % 0.8; Eosinophils % 1.6; HCT 43.3 % (36.0-46.0); HGB 14.6 g/dL (11.2-15.7); Immature Grans % 0.2; Lymphocytes % 38.7; MCH 30.8 pg (27.0-33.0); MCHC 33.7 % (32.0-36.0); MCV 91 fL (80-95); MPV 10.1 fL (8.0-11.0); Neutrophils % 49.7; Platelet Count 267 10^3/uL (130-400); RBC 4.74 10^6/uL (3.93-5.22); RDW 12.3 % (11.7-14.6); RDW-SD 41.3 fL; WBC 4.99 10^3/uL (4.4-10.8)
[2022-06-14 16:48] LABS: Iron 109 ug/dL (50-170); Total Iron Binding Capacity 411 ug/dL (250-450); Transferrin Sat 27 % (15-50)
[2022-06-14 16:55] LABS: ALT 35 U/L (14-59); AST 25 U/L (15-37); Albumin 4.3 g/dL (3.4-5.0); Alkaline Phosphatase 78 U/L (46-116); Anion Gap 7.6 mmol/L (3-11); BUN 16 mg/dL (7-18); Bilirubin, Total 0.5 mg/dL (0.2-1.0); CO2 28.4 mmol/L (21.0-32.0); CREATININE 0.8 mg/dL (0.55-1.02); Calcium 9.8 mg/dL (8.5-10.1); Chloride 97 mmol/L (98-107); Estimated GFR 79.71 (mL/min/1.73m2); Glucose 88 mg/dL (74-106); Potassium 4.7 mmol/L (3.5-5.1); Sodium 133 mmol/L (136-145); TSH (W/Ref FT4) 0.76 uIU/mL (0.36-3.74); Total Protein 7.3 g/dL (6.4-8.2)
[2022-06-15 10:41] LABS: Lyme Ab w Rflx to Lyme Confirm Negative (Negative)
[2022-06-16 19:03] LABS: Anaplasma phagocytophilum Negative (Negative); B. miyamotoi PCR Negative (Negative); Babesia divergens/MO-1 Negative (Negative); Babesia duncani Negative (Negative); Babesia microti Negative (Negative); Ehrlichia chaffeensis Negative (Negative); Ehrlichia ewingii/canis Negative (Negative); Ehrlichia muris eauclairensis Negative (Negative)
== END 2022-06-14 12:41 | disposition home or self-care (01) ==
LOC: NCHCN 12:40
PROVIDERS: PCP Nurse Practitioner Family; Visit Provider Nurse Practitioner Family
DX: I10 Essential (primary) hypertension (principal); E03.9 Hypothyroidism, unspecified; F41.8 Other specified anxiety disorders; E87.5 Hyperkalemia; R79.89 Other specified abnormal findings of blood chemistry
CPT/HCPCS: 80053; 87798; 83540; 83550; 84443; 85025; 86618

== ENCOUNTER 2022-07-13 00:52 | Outpatient (CLI) | payer MEDICARE, BC, SELFPAY ==
--- NOTE | 2022-07-13 08:30 | DI.RAD_ITS ---
Exam(s) XR TIB/FIB RT EXAM: XR TIB/FIB RT CLINICAL HISTORY: PAIN IN RT LOWER LEG, M79.661. TECHNIQUE: 2D digital imaging was performed of the right tibia and fibula. Two images were obtained. AP and lateral views were obtained. COMPARISON: CR,XR XR KNEE RT 3V AP,LAT,NATALEE from 02/17/2020 CR XR KNEE RT 2V AP,LAT from 01/11/2022 FINDINGS: BONES: No acute fracture is present. No bony destructive lesion is seen. There are mild degenerative changes of the knee particularly in the medial femoral tibial joint, characterized by joint space evelia rowing and periarticular spurring. The area of sclerosis along the posterior aspect of the proximal tibia is unchanged. No destructive changes or soft tissue calcifications are seen. This is unchange d compared to prior examinations. SOFT TISSUE: Normal. IMPRESSION: No acute abnormality. DATA REPOSITORY: RADIATION DOSE DELIVERED:
== END 2022-07-13 01:12 ==
LOC: DI 00:52
PROVIDERS: PCP Nurse Practitioner Family; Visit Provider Family Medicine
DX: M79.661 Pain in right lower leg (principal)
CPT/HCPCS: 73590

== ENCOUNTER 2022-07-19 03:18 | Outpatient (CLI) | payer MEDICARE, BC, SELFPAY ==
[2022-07-19] MEDS: Albuterol HFA 18 GM 200 PUFF INH IH (11:35)
[2022-07-19] MEDS: Inhaler, Assist Device 1 EACH MC (11:36)
--- NOTE | 2022-07-19 14:06 | W.PFT ---
Date of service: 07/19/22 Time of Service: 10:10 Pulmonary Function Test Result Indications: Dyspnea Interpretation Spirometry: There is mild airflow limitation. Although FEV1% increased by 12%, the absolute increase does not meet criteria for a bronchodilator response. Lung Volumes: There is hyperinflation and air trapping. Diffusion Capacity: Normal diffusion Airway Pressure: Normal airways resistance Impression Mild airflow obstruction with a probably bronchodilator response, air trapping and a normal diffusion. This may represent uncontrolled asthma or COPD (chronic bronchitis) in the correct clinical setting. Clinical Correlation therefore is recommended.
== END 2022-07-19 03:19 | disposition home or self-care (01) ==
LOC: RT 03:19
PROVIDERS: PCP Nurse Practitioner Family; Visit Provider Nurse Practitioner Family
DX: R06.02 Shortness of breath (principal)
CPT/HCPCS: 94060; 94726; 94729

== ENCOUNTER 2022-08-16 01:36 | Outpatient (CLI) | payer MEDICARE, BC, SELFPAY ==
--- NOTE | 2022-08-16 | DI.DEXA_ITS ---
Exam(s) XR DEXA BONE DENSITY W/WO JACKIE EXAM: XR DEXA BONE DENSITY W/WO JACKIE CLINICAL HISTORY: OSTEOPENIA M85.80 DISORDER BONE DENSITY M85.88 SCREENING OSTEOPOROSIS TECHNIQUE: H[employer] Horizon C densitometer analysis of left hip, lumbar spine and left forearm. Lat eral survey image of the thoracic and lumbar spine. COMPARISON: DX DEXA BONE DENSITY WITH JACKIE from 10/22/2017 CR XR CHEST 2V PA LATERAL from 2006 and 12/21/2021 FINDINGS: Lateral view of the thoracic and lumbar spine shows no evidence of compression fractures. Bone mineral density measurements of the lumbar spine correspond to a total T-score of -1.6, in the o steopenic range. This is not significantly changed from 2018 but represents a 19.6 percent decrease from 2006. Bone mineral density measurements of the left hip correspond to a total T-score of -2.0. The femora l neck T-score is -3.0, in the osteoporotic range. This represents an 8.6 percent decrease compared with 2018 at 22.1 percent decrease compared with 2006.. The left forearm bone mineral density measurements correspond to a T-score of the distal 3rd of -2.4 , in the osteopenic range. This represents a 9.3 percent decrease from 2018. The forearm was not an alyzed in 2006.. IMPRESSION: Osteopenia of the lumbar spine and left forearm. Osteoporosis of the left hip.
== END 2022-08-16 01:56 ==
LOC: DI 01:37
PROVIDERS: PCP Nurse Practitioner Family; Visit Provider Nurse Practitioner Family
DX: M81.8 Other osteoporosis without current pathological fracture (principal); Z13.820 Encounter for screening for osteoporosis; M85.831 Other specified disorders of bone density and structure, right forearm
CPT/HCPCS: 77080

== ENCOUNTER 2022-10-23 02:48 | Outpatient (CLI) | payer MEDICARE, BC, SELFPAY ==
[2022-10-23 08:18] LABS: ESR 1 mm/hr (0-30)
[2022-10-23 08:19] LABS: Abs Immature Grans 0.01 10^3/uL (0.0-0.06); Absolute Basophil Count 0.06 10^3/uL (0.0-0.2); Absolute Eosinophil Count 0.14 10^3/uL (0.0-0.7); Absolute Lymphocyte Count 2.02 10^3/uL (1.2-3.4); Absolute Neutrophil Count 2.38 10^3/uL (1.2-6.7); Basophils % 1.2; Eosinophils % 2.7; HCT 42.6 % (36.0-46.0); HGB 14.9 g/dL (11.2-15.7); Immature Grans % 0.2; Lymphocytes % 39.5; MCH 31.8 pg (27.0-33.0); MCV 91 fL (80-95); MPV 9.2 fL (8.0-11.0); Monocytes % 9.8; Neutrophils % 46.6; Platelet Count 227 10^3/uL (130-400); RBC 4.68 10^6/uL (3.93-5.22); RDW 12.2 % (11.7-14.6); RDW-SD 40.8 fL; WBC 5.11 10^3/uL (4.4-10.8)
[2022-10-23 08:51] LABS: D-Dimer 449 ng/mlFEU (<500)
[2022-10-23 08:55] LABS: ALT 32 U/L (14-59); AST 24 U/L (15-37); Albumin 4.2 g/dL (3.4-5.0); Alkaline Phosphatase 76 U/L (46-116); Anion Gap 5.8 mmol/L (3-11); BUN 11 mg/dL (7-18); Bilirubin, Total 0.5 mg/dL (0.2-1.0); CO2 29.2 mmol/L (21.0-32.0); CREATININE 0.8 mg/dL (0.55-1.02); Chloride 96 mmol/L (98-107); Creatine Kinase 76 U/L (26-192); Estimated GFR 79.22 (mL/min/1.73m2); Glucose 76 mg/dL (74-106); NT-proBNP 157 pg/mL (<300); Potassium 4.1 mmol/L (3.5-5.1); Sodium 131 mmol/L (136-145); TSH (W/Ref FT4) 1.59 uIU/mL (0.36-3.74); Total Protein 7.6 g/dL (6.4-8.2)
[2022-10-23 09:31] LABS: Vitamin B12 1033 pg/mL (193-986)
[2022-10-24 13:30] LABS: ANA Interpretation Negative (Negative)
== END 2022-10-23 02:49 | disposition home or self-care (01) ==
PROVIDERS: Family Medicine; PCP Nurse Practitioner Family; Visit Provider Internal Medicine
DX: R53.83 Other fatigue (principal); R06.02 Shortness of breath
CPT/HCPCS: 36415; 80053; 82533; 82550; 85652; 82607; 83880; 84443; 85025; 85379; 86038

== ENCOUNTER 2022-11-02 09:02 | Outpatient (RCR) | payer MEDICARE, BC, SELFPAY ==
--- NOTE | 2022-11-02 09:00 | HOLTER_ITS ---
APPROVED REPORT Conclusion This is a 48-hour Holter monitor ordered for shortness of breath and fatigue Rhythm throughout is sinus. Average heart rate was 72. Minimum was 54, maximum 121. There were very rare isolated atrial premature beats There were rare ventricular ectopic beats There was no atrial fibrillation no high-grade AV block no pauses greater than 3 seconds Patient symptoms were reported which had no correlation with any dysrhythmia
== END 2022-11-24 23:59 | disposition home or self-care (01) ==
LOC: CARDOPNVT 09:02
PROVIDERS: PCP Nurse Practitioner Family; Visit Provider Family Medicine
DX: R06.02 Shortness of breath (principal); R53.82 Chronic fatigue, unspecified
CPT/HCPCS: 93227; 93225; 93226

== ENCOUNTER → 2022-11-29 03:39 | Outpatient (CLI) | payer MEDICARE, BC, SELFPAY ==
--- NOTE | 2022-11-29 07:30 | DI.US_ITS ---
APPROVED REPORT EXAM: Comprehensive 2D, Doppler, and color-flow Echocardiogram Patient Location: Out-Patient Technology Auditor: Mikki Lopez RDCS (AE) Indications: Ascending aorta dilation, Aortic Valve regurgitation, Mitral valve regurgitation. Other Information Study Quality: Excellent Conclusion The left ventricular wall thickness and chamber size. Ejection fraction is 55 to 60%. Wall motion i s normal Normal right ventricular size and systolic function Both atria are normal in size Aortic valve is trileaflet with mild regurgitation Normal mitral valve with mild to moderate regurgitation Normal tricuspid valve with mild regurgitation Mildly dilated aortic root and ascending aorta Wall motion Left Ventricle The left ventricle is normal size. The left ventricular systolic function is normal. The left ventric ular ejection fraction is within the normal range. There is normal left ventricular wall thickness. T here is normal LV segmental wall motion. There is no ventricular septal defect visualized. LVEF is 55 -60%. Right Ventricle The right ventricle is normal size. The right ventricular systolic function is normal. Atria The left atrium size is normal. The right atrium size is normal. The interatrial septum is intact wit h no evidence for an atrial septal defect. Aortic Valve The aortic valve is normal in structure. Aortic valve is trileaflet. There is no aortic valvular sten osis. Mild aortic regurgitation. Mitral Valve The mitral valve is normal in structure. No evidence of mitral valve stenosis. Mild to moderate juan c l regurgitation. Tricuspid Valve The tricuspid valve is normal in structure. There is no tricuspid valve stenosis. Mild tricuspid reg urgitation. The RVSP is 18.8 mmHg. Pulmonic Valve The pulmonary valve is normal in structure. There is no pulmonic valvular stenosis. There is no pulmo katya valvular regurgitation. Great Vessels Aortic root is mildly dilated. The ascending aorta is mildly dilated. Aortic arch is not well visual ized. IVC is normal in size and collapses >50% with inspiration. Pericardium There is no pericardial effusion. 2D Dimensions IVSD d PLAX 0.81 cm F: 0.6-1.0 Ao Root d 3.47 cm F: 2.7 - 3.3 LVPW d PLAX 0.91 cm F: 0.6 - 1.0 Ao Asc Diam d 3.58 cm F: 2.3 - 3.1 LVID d PLAX 4.43 cm F: 3.8 - 5.2 LVDs 3.11 cm F: 2.2 - 3.5 LV EF Teichholz 57.3 % FS 29.91 % LV EDV (Teich) 89.2 mL LV ESV (Teich) 38.1 mL M-Mode TAPSE 1.88 cm (M/F) >1.7 Auto EF LV EDV A4C 88.2 mL LV EDV A2C 92.9 mL LV EDV BP 89.9 mL LV ESV A4C 41.0 mL LV ESV A2C 42.6 mL LV ESV BP 40.8 mL LVEF(%) A4C 53.5 % LVEF(%) A2C 54.2 % LVEF(%) BP 54.6 % LV SV A4C 47.2 ml LV SV A2C 50.3 ml LV SV BP 49.1 ml LV CO A4C 2.6 L/min LV CO A2C 2.6 L/min LV CO BP 2.6 L/min HR A4C 54.55 BPM HR A2C 51.80 BPM LV EDV Index (BP) LA Volume LA Length A4C 3.8 cm LA Length A2C 4.8 cm LA Area A4C s 11.38 cm2 LA Area A2C s 13.79 cm2 LA Vol A4C A-L 28.68 mL LA Vol A2C A-L 33.38 mL LA Vol Biplane A-L 34.8 mL LA Vol/BSA A4C A-L LA Vol/BSA A2C A-L LA Vol/BSA BP A-L 20.6 mL/m2 LA Vol A4C MOD 24.8 mL LA Vol A2C MOD 32.0 mL LA Vol BP MOD 31.5 mL RA Volume RA Area A4C 10.1 cm2 RA ESV A4C (A-L) 21.9mL RA Vol/BSA A4C A-L RA Length A4C 4.0 cm RA ESV A4C (MOD) 20.8mL LV Diastology MV E' medial 0.051 (>0.07 m/s) MV E Vmax 0.56 (0.4-1.3 m/s) MV E/E' MED 11.00 (<14) MV A Vmax 0.40 (0.4-1.3 m/s) MV E' lateral 0.051 (>0.1 m/s) E/A Ratio 1.4 MV E/E' LAT 11.00 (<14) MV E' Average 0.051 m/s MV E/E'(average) 11.00 Aortic Valve AoV Vmax 0.94 m/s LVOT Vmax 0.71 m/s AoV Peak Grad 52.6 mmHg LVOT Peak Grad 2.0 mmHg AoV Area (Vmax) 2.50 cm2 LVOT VTI 0.165 m AoV VTI 0.245 m LVOT Mean Grad 1.3 mmHg AoV Mean Dylon. 0.64 m/s LVOT SV 54.27 mL AoV Mean Grad 1.9 mmHg LVOT Diam s 2.00 cm AoV Area (VTI) 2.22 cm2 AV Regurg Peak Gr. 101.75 mmHg Velocity Ratio 0.76 AR Decel [place] 1.9m/sec2 AR DT 2671 msec AR PHT 775 msec AR Vmax 5.04 m/s Mitral Valve MV DT 186 (160-240 msec) Pulmonary Valve PV Vmax 0.79 (0.5-1.5 m/s) RVOT Vmax 0.50 m/s PV Peak Grad 2.5 mmHg RVOT Peak Gr. 1.0 mmHg PV Mean Dylon 0.47 m/s RVOT VTI 0.133 m PV Mean Grad 1.1 mmHg RVOT Mean Gr. 0.5 mmHg Tricuspid Valve RA Pressure 3.00 mmHg TR Vmax 1.99 m/s TV S' 0.15 m/s TR Peak Grad 15.8 mmHg RVSP (TR) 18.8 mmHg
== END ==
PROVIDERS: PCP Nurse Practitioner Family; Visit Provider Nurse Practitioner Family
DX: I77.810 Thoracic aortic ectasia (principal)
CPT/HCPCS: 93306

== ENCOUNTER → 2023-03-07 02:57 | Outpatient (CLI) | payer MEDICARE, BC, SELFPAY ==
--- NOTE | 2023-03-07 | DI.RAD_ITS ---
Exam(s) XR HIP LT COMPLETE AP PELVIS EXAM: XR HIP LT COMPLETE AP PELVIS CLINICAL HISTORY: LT HIP PAIN, M25.552. TECHNIQUE: 2D digital imaging was performed. COMPARISON: CR XR HIP RT COMPLETE AP PELVIS from 03/29/2022 FINDINGS: No evidence of pelvic nor hip fracture. There are moderate-advanced degenerative changes in the righ t hip again noted, unchanged. No obvious degenerative changes in the left hip. Additional lateral v iew of the left hip does not reveal osteophytes. Bone density normal. No osseous lesions. IMPRESSION: Moderate degenerative changes in the right hip, unchanged from 03/29/2022. Left hip continues to appear unremarkable. DATA REPOSITORY: RADIATION DOSE DELIVERED:
--- OUTSIDE RECORDS SUMMARY | 2023-03-07 02:58 | XMS_ITS | CCD ---
Author Name Unknown Address [address] [place] [address] [phone] Organization Unknown Address [address] [place] [address] [phone] Care Team Providers Care Fixed Income Trading Vice President Name Role Phone SANJANA ROTHMAN MD Attending Physician [phone] Vital Signs Unknown or Not Available. Allergies Allergy Code Allergy Type Reaction Status No Known Drug Allergies 0 No known drug allergies Active Procedures Unknown or Not Available. History of Immunizations Unknown or Not Available. Problems Unknown or Not Available. Results Unknown or Not Available. Active Medications Unknown or Not Available. Medications Administered During Visit Unknown or Not Available. Encounters Encounter Diagnosis Diagnosis Code Start Date Follow-up orthopedic assessment [id number] 10/25/2020 Social History Smoking Status Code Start Date End Date Never smoker [id number] Patient Decision Aids Unknown or Not Available. Discharge Instructions You were admitted to [facility] on 10/25/2020 09:04 with a principal diagnosis of Encounter for other orthopedic aftercare You were discharged from [facility] on 10/25/2020 09:04 Should you have any questions prior to discharge, please contact a member of your healthcare team. If you have left the hospital and have any questions, please contact your primary care physician. Chief Complaint and Reason For Visit Unknown or Not Available. Function Status Unknown or Not Available. Plan of Care Unknown or Not Available. Referral/Transition of Care Unknown or Not Available.
--- OUTSIDE RECORDS SUMMARY | 2023-03-07 02:59 | XMS_ITS | CCD ---
Author Name Unknown Address [address] [place] [address] [phone] Organization Unknown Address [address] [place] [address] [phone] Care Team Providers Care Grinder Gear Name Role Phone SANJANA ROTHMAN Attending Physician [phone] SANJANA ROTHMAN Rounding (Secondary) Physician [phone] Vital Signs Unknown or Not Available. Allergies [...] Encounters Encounter Diagnosis Diagnosis Code Start Date Postprocedural state finding [id number] Social History Smoking Status Code Start Date End Date Never smoker [id number] Patient Decision Aids Unknown or Not Available. Discharge Instructions You were admitted to [facility] on 04/11/2021 12:32 with a principal diagnosis of Other specified postprocedural states You were discharged from [facility] on 04/11/2021 00:00 Should you have any questions prior to [...]
--- OUTSIDE RECORDS SUMMARY | 2023-03-07 02:59 | XMS_ITS | CCD ---
Author Name Unknown Address [address] [place] [address] [phone] Organization Unknown Address [address] [place] [address] [phone] Care Team Providers Care Lecturer In Computer Science Name Role Phone SANJANA ROTHMAN MD Attending Physician [phone] Vital Signs Unknown or Not Available. Allergies [...] Diagnosis Code Start Date Follow-up orthopedic assessment [id number] 09/13/2020 Social History Smoking Status Code Start Date End Date Never smoker 750670530 Patient Decision Aids Unknown or Not Available. Discharge Instructions You were admitted to [facility] on 09/13/2020 11:24 with a principal diagnosis of Encounter for other orthopedic aftercare You were discharged from [facility] on 09/13/2020 11:24 Should you have any questions prior to [...]
== END ==
PROVIDERS: PCP Nurse Practitioner Family; Visit Provider Nurse Practitioner Family
DX: M16.11 Unilateral primary osteoarthritis, right hip (principal)
CPT/HCPCS: 73502

== ENCOUNTER 2023-08-15 16:27 | Outpatient (REF) | payer MEDICARE, BC, SELFPAY ==
--- OUTSIDE RECORDS SUMMARY | 2023-08-15 16:32 | XMS_ITS ---
Author Name Unknown Address [address] [place] [address] [phone] Phone Organization Unknown Address [address] [place] [address] [phone] Phone Care Team Providers Care Elevated Motorman Name Role Phone STEPHAN ALLAN MD Attending Unavailable SATYA SOSA Primary Unavailable Results MO FOOT RIGHT 3V MIN - Compl eted: 10/25/2020 15:40 LOINC: Three views were obtained an d show plate and screw fixation in place at a 1st MTP arthrodesis. Alignment appears unchanged in comparison with previous examination of September 13. Dictated by: ESEQUIEL RIVER M.D. RADIOLOGIST Transcribed by: GE[place] 10/25/20/10:57 D Sunday, October 25, 2020 9:47:04 AM [id number] Electronically Reviewed and Signed By: WANDA RIVER M.D. RADIOLOGIST 10/25/20 11:17 Social History Type Status Start Date End Date Code Code Syst em Smoking History Never smoker (Never Smoked) 201925723 SNOMED CT Sex Female Hospital Discharge Instructions Should you have any questions prior to discharge, please contact a member of your healthcare team. If you have left the hospital and have any questions, please contact your primary care physician. Reason For Referral No Data Found Allergies and Adverse Reactions Allergy Substance Reaction Severity Start Date Concern Status Co de Code System No Known Drug Allergies Active 382319974 SNOMED-CT Plan of Treatment No Data Found Encounters Encounter Diagnosis Start Date Code Code Sys tem Follow-up orthopedic assessment 10/25/2020 989539044 SNOMED-CT Personal Care Team Section Performer Name Performer Role Active Date Inactive Da te
--- OUTSIDE RECORDS SUMMARY | 2023-08-15 16:32 | XMS_ITS ---
Author Name Unknown Address [address] [place] [address] [phone] Phone Organization Unknown Address [address] [place] [address] [phone] Phone Care Team Providers Care Electro Mechanical Assembler Name Role Phone STEPHAN ALLAN MD Attending Unavailable SATYA SOSA Primary Unavailable Results MO FOOT RIGHT 3V MIN - Compl eted: 09/13/2020 12:11 LOINC: Compared to 06/21/20. There has been interval surgery at the level of the metatarsophalangeal joint of the great toe with placement of dorsal fusion plate across this joint, secured by six vertical screws and there are two additional independent crisscross screws across this articulation also evident. No hardware fracture. No radiographic evidence of osteomyelitis. There is age-related osteopenia. No osseous lesions. Dictated by: CITLALY LOAIZA M.D. RADIOLOGIST Transcribed by: MICHELLE 09/13/20/14:17 D 09/13/2020 12:02:01 [id number] Electronically Reviewed and Signed By: ASHIA LOAIZA M.D. RADIOLOGIST 09/16/20 18:12 Social History Type Status Start Date End Date Code Code Syst em Smoking History Never smoker (Never Smoked) 750288860 SNOMED CT Sex Female Hospital Discharge Instructions [...] Code System No Known Drug Allergies Active 563030491 SNOMED-CT Plan of Treatment No Data Found Encounters Encounter Diagnosis Start Date Code Code Sys tem Follow-up orthopedic assessment 09/13/2020 348021774 SNOMED-CT Personal Care Team Section Performer Name Performer Role Active Date Inactive Da te
[2023-08-15 20:24] LABS: HCT 39.3 % (36.0-46.0); HGB 13.6 g/dL (11.2-15.7); MCH 31.2 pg (27.0-33.0); MCHC 34.6 % (32.0-36.0); MCV 90 fL (80-95); MPV 10.7 fL (8.0-11.0); Platelet Count 225 10^3/uL (130-400); RBC 4.36 10^6/uL (3.93-5.22); RDW 12.6 % (11.7-14.6); RDW-SD 41.7 fL; WBC 7.68 10^3/uL (4.4-10.8)
[2023-08-15 20:42] LABS: ALT 30 U/L (14-59); AST 26 U/L (15-37); Albumin 4.1 g/dL (3.4-5.0); Alkaline Phosphatase 75 U/L (46-116); Anion Gap 5.2 mmol/L (3-11); BUN 11 mg/dL (7-18); Bilirubin, Total 0.67 mg/dL (0.2-1.0); CO2 30.8 mmol/L (21.0-32.0); CREATININE 0.8 mg/dL (0.55-1.02); Calcium 10.3 mg/dL (8.5-10.1); Chloride 95 mmol/L (98-107); Estimated GFR 78.72 (mL/min/1.73m2); Glucose 102 mg/dL (74-106); Potassium 4.9 mmol/L (3.5-5.1); Sodium 131 mmol/L (136-145); TSH (W/Ref FT4) 1.18 uIU/mL (0.36-3.74); Total Protein 7.1 g/dL (6.4-8.2)
== END 2023-08-15 16:28 | disposition home or self-care (01) ==
LOC: NCHCN 16:27
PROVIDERS: PCP Nurse Practitioner Family; Visit Provider Nurse Practitioner Family
DX: R53.83 Other fatigue (principal); I10 Essential (primary) hypertension; E03.9 Hypothyroidism, unspecified
CPT/HCPCS: 80053; 85027; 84443

== ENCOUNTER 2023-08-19 18:46 | Outpatient (REF) | payer MEDICARE, BC, SELFPAY ==
--- OUTSIDE RECORDS SUMMARY | 2023-08-19 18:50 | XMS_ITS ---
Author Name Unknown Address [address] [place] [address] [phone] Phone Organization Unknown Address [address] [place] [address] [phone] Phone Care Team Providers Care Ward Assistant Name Role Phone STEPHAN ALLAN MD Attending [...] Transcribed by: MICHELLE 09/13/20/14:17 D 09/13/2020 12:02:01 [id number] Electronically Reviewed and Signed By: ASHIA LOAIZA M.D. RADIOLOGIST 09/16/20 18:12 Social History Type Status Start Date End Date Code Code Syst em Smoking History Never smoker (Never Smoked) 113690656 SNOMED CT Sex Female Hospital Discharge Instructions [...] Code System No Known Drug Allergies Active 749322824 SNOMED-CT Plan of Treatment No Data Found Encounters Encounter Diagnosis Start Date Code Code Sys tem Follow-up orthopedic assessment 09/13/2020 838906888 SNOMED-CT Personal Care Team Section Performer Name Performer Role Active Date Inactive Da te
--- OUTSIDE RECORDS SUMMARY | 2023-08-19 18:50 | XMS_ITS ---
Author Name Unknown Address [address] [place] [address] [phone] Phone Organization Unknown Address [address] [place] [address] [phone] Phone Care Team Providers Care Injection Molding Technician Name Role Phone STEPHAN Neely Attending Unavailable GISELL Roque Primary Unavailable Results XR FOOT RT 3V MIN* - Complet ed: 04/11/2021 09:06 LOINC: RIGHT FOOT, 3 VIEWS: Comparison is 12/20/2020. There are stable postsurgical changes of the first MTP joint. The bones appear osteopenic. No acute fracture or dislocation is seen. The soft tissues are unremarkable. Dictated by: NAVID BIRD MD Transcribed by: TITUS 04/11/21/12:14 [id number] Electronically Reviewed and Signed By: ALONSO BIRD MD 04/11/21 16:08 Copy for: [facility] IN[facility] Social History Type Status Start Date End Date Code Code Syst em Smoking History Never smoker (Never Smoked) 708319687 SNOMED CT Sex Female Hospital Discharge Instructions [...] Code System No Known Drug Allergies Active 540345722 SNOMED-CT Plan of Treatment No Data Found Encounters Encounter Diagnosis Start Date Code Code Sys tem Postprocedural state finding 04/11/2021 357067657 SNOMED-CT Personal Care Team Section Performer Name Performer Role Active Date Inactive Da te
--- OUTSIDE RECORDS SUMMARY | 2023-08-19 18:51 | XMS_ITS ---
Author Name Unknown Address [address] [place] [address] [phone] Phone Organization Unknown Address [address] [place] [address] [phone] Phone Care Team Providers Care Electrical Software Engineer Name Role Phone STEPHAN ALLAN MD Attending [...] D Sunday, October 25, 2020 9:47:04 AM [id number] Electronically Reviewed and Signed By: WANDA RIVER M.D. RADIOLOGIST 10/25/20 11:17 Social History Type Status Start Date End Date Code Code Syst em Smoking History Never smoker (Never Smoked) 727595295 SNOMED CT Sex Female Hospital Discharge Instructions [...] Code System No Known Drug Allergies Active 373432650 SNOMED-CT Plan of Treatment No Data Found Encounters Encounter Diagnosis Start Date Code Code Sys tem Follow-up orthopedic assessment 10/25/2020 269983469 SNOMED-CT Personal Care Team Section Performer Name Performer Role Active Date Inactive Da te
[2023-08-19 20:11] LABS: Creatinine,24hr Ur 0.86 g/24hr (0.60-1.80); Total Volume 3000 ml
[2023-08-21 09:19] LABS: Calcium Urine 14.8 mg/dL (See Note); Calcium Urine 24 hr 444 mg/24hr (100-300); Timed Urine Volume 3000 mL
== END 2023-08-19 18:47 | disposition home or self-care (01) ==
LOC: LBN 18:46
PROVIDERS: PCP Nurse Practitioner Family; Visit Provider Internal Medicine Endocrinology, Diabetes & Metabolism
DX: E03.9 Hypothyroidism, unspecified (principal); R63.4 Abnormal weight loss; M81.0 Age-related osteoporosis without current pathological fracture
CPT/HCPCS: 81050; 82340; 82570

== ENCOUNTER → 2023-08-26 03:20 | Outpatient (CLI) | payer MEDICARE, BC, SELFPAY ==
--- OUTSIDE RECORDS SUMMARY | 2023-08-26 03:23 | XMS_ITS ---
Author Name Unknown Address [address] [place] [address] [phone] Phone Organization Unknown Address [address] [place] [address] [phone] Phone Care Team Providers Care Financial Planner Name Role Phone STEPHAN Neely Attending Unavailable [...] NAVID BIRD MD Transcribed by: TITUS 04/11/21/12:14 [id number] Electronically Reviewed and Signed By: ALONSO BIRD MD 04/11/21 16:08 Copy for: 185 [facility] INFORMATION MGMT Social History Type Status Start Date End Date Code Code Syst em Smoking History Never smoker (Never Smoked) 963980368 SNOMED CT Sex Female Hospital Discharge Instructions [...] Code System No Known Drug Allergies Active 078764157 SNOMED-CT Plan of Treatment No Data Found Encounters Encounter Diagnosis Start Date Code Code Sys tem Postprocedural state finding 04/11/2021 999336237 SNOMED-CT Personal Care Team Section Performer Name Performer Role Active Date Inactive Da te
--- OUTSIDE RECORDS SUMMARY | 2023-08-26 03:23 | XMS_ITS ---
Author Name Unknown Address [address] [place] [address] [phone] Phone Organization Unknown Address [address] [place] [address] [phone] Phone Care Team Providers Care Ice Cream Freezer Name Role Phone STEPHAN ALLAN MD Attending [...] Transcribed by: MICHELLE 09/13/20/14:17 D 09/13/2020 12:02:01 [id number] Electronically Reviewed and Signed By: ASHIA LOAIZA M.D. RADIOLOGIST 09/16/20 18:12 Social History Type Status Start Date End Date Code Code Syst em Smoking History Never smoker (Never Smoked) 904820946 SNOMED CT Sex Female Hospital Discharge Instructions [...] Code System No Known Drug Allergies Active 516019359 SNOMED-CT Plan of Treatment No Data Found Encounters Encounter Diagnosis Start Date Code Code Sys tem Follow-up orthopedic assessment 09/13/2020 558810541 SNOMED-CT Personal Care Team Section Performer Name Performer Role Active Date Inactive Da te
--- OUTSIDE RECORDS SUMMARY | 2023-08-26 03:24 | XMS_ITS ---
Author Name Unknown Address [address] [place] [address] [phone] Phone Organization Unknown Address [address] [place] [address] [phone] Phone Care Team Providers Care Boatwright Name Role Phone STEPHAN ALLAN MD Attending [...] D Sunday, October 25, 2020 9:47:04 AM [id number] Electronically Reviewed and Signed By: WANDA RIVER M.D. RADIOLOGIST 10/25/20 11:17 Social History Type Status Start Date End Date Code Code Syst em Smoking History Never smoker (Never Smoked) 019083413 SNOMED CT Sex Female Hospital Discharge Instructions [...] Code System No Known Drug Allergies Active 990806637 SNOMED-CT Plan of Treatment No Data Found Encounters Encounter Diagnosis Start Date Code Code Sys tem Follow-up orthopedic assessment 10/25/2020 645596278 SNOMED-CT Personal Care Team Section Performer Name Performer Role Active Date Inactive Da te
--- NOTE | 2023-08-26 14:03 | DI.RAD_ITS ---
Exam(s) XR FOOT RT COMPLETE EXAM: XR FOOT RT COMPLETE CLINICAL HISTORY: M79.671 Pain in RT foot. TECHNIQUE: 2D digital imaging was performed of the right foot. Three images were obtained. AP, obl ique and lateral views were obtained. COMPARISON: No exams were available for comparison FINDINGS: BONES: No acute fracture is present. No bony destructive lesion is seen. There is a tiny enthesophyte at the posterior calcaneus. JOINTS: No dislocation present. There are postsurgical changes of the 1st MTP joint fusion. The orth opedic hardware appears in good position. There are degenerative changes seen in the interphalangeal joints of the toes. SOFT TISSUE: Normal. IMPRESSION: First MTP joint fusion. DATA REPOSITORY: RADIATION DOSE DELIVERED:
== END ==
PROVIDERS: PCP Nurse Practitioner Family; Visit Provider Nurse Practitioner Family
DX: M79.671 Pain in right foot (principal)
CPT/HCPCS: 73630

== ENCOUNTER 2024-04-03 14:20 | Outpatient (REF) | payer MEDICARE, BC, SELFPAY ==
[2024-04-03 14:45] LABS: Abs Immature Grans 0.03 10^3/uL (0.0-0.06); Absolute Basophil Count 0.05 10^3/uL (0.0-0.2); Absolute Eosinophil Count 0.06 10^3/uL (0.0-0.7); Absolute Lymphocyte Count 1.98 10^3/uL (1.2-3.4); Absolute Monocyte Count 0.41 10^3/uL (0.1-0.8); Absolute Neutrophil Count 4.04 10^3/uL (1.2-6.7); Basophils % 0.8 %; Eosinophils % 0.9 %; HCT 45.3 % (36.0-46.0); HGB 15.1 g/dL (11.2-15.7); Immature Grans % 0.5 %; Lymphocytes % 30.1 %; MCH 30.8 pg (27.0-33.0); MCHC 33.3 % (32.0-36.0); MCV 92 fL (80-95); MPV 10.7 fL (8.0-11.0); Monocytes % 6.2 %; Neutrophils % 61.5 %; Platelet Count 234 10^3/uL (130-400); RBC 4.91 10^6/uL (3.93-5.22); RDW 12.4 % (11.7-14.6); RDW-SD 42.4 fL; WBC 6.57 10^3/uL (4.4-10.8)
[2024-04-03 14:54] LABS: Prothrombin Time 10.3 sec (9.1-11.1)
[2024-04-03 15:16] LABS: ALT 36 U/L (14-59); AST 27 U/L (15-37); Albumin 4.5 g/dL (3.4-5.0); Alkaline Phosphatase 88 U/L (46-116); Anion Gap 6.9 mmol/L (3-11); BUN 15 mg/dL (7-18); Bilirubin, Total 0.53 mg/dL (0.2-1.0); CO2 31.1 mmol/L (21.0-32.0); CREATININE 0.8 mg/dL (0.55-1.02); Calcium 9.6 mg/dL (8.5-10.1); Chloride 96 mmol/L (98-107); Estimated GFR 78.72 (mL/min/1.73m2); Glucose 86 mg/dL (74-106); Potassium 4.8 mmol/L (3.5-5.1); Sodium 134 mmol/L (136-145); TSH (W/Ref FT4) 1.29 uIU/mL (0.36-3.74); Total Protein 7.6 g/dL (6.4-8.2)
[2024-04-03 15:17] LABS: C-Reactive Protein < 0.50 mg/dL (<or=0.5)
[2024-04-03 16:34] LABS: ESR 8 mm/hr (0-30)
== END 2024-04-03 14:21 | disposition home or self-care (01) ==
LOC: NCHCN 14:20
PROVIDERS: PCP Nurse Practitioner Family; Visit Provider Nurse Practitioner Family
DX: E11.9 Type 2 diabetes mellitus without complications (principal); R23.3 Spontaneous ecchymoses
CPT/HCPCS: 80053; 85652; 84443; 85025; 85610; 86140

== ENCOUNTER 2024-04-08 02:39 | Outpatient (CLI) | payer MEDICARE, BC, SELFPAY ==
--- NOTE | 2024-04-08 | DI.US_ITS ---
Exam(s) US ABDOMEN LIMITED EXAM: US ABDOMEN LIMITED CLINICAL HISTORY: RUQ pain, R10.11 TECHNIQUE: Ultrasound abdomen performed using standard protocol. COMPARISON: No exams were available for comparison FINDINGS: LIVER: Normal size. Normalechogenicity. No focal liver lesions are seen.. GALLBLADDER: No evidence of cholelithiasis. No evidence of wall thickening. No pericholecystic fluid identified. TORRES'S SIGN: Negative. BILIARY SYSTEM: No intrahepatic or extrahepatic biliary ductal dilation. RIGHT KIDNEY: Normal size. No evidence of renal calculi. No evidence of hydronephrosis. No suspicious renal mass. No cyst identified. PANCREAS: Normal where visualized. ABDOMINAL AORTA AND IVC: Visualized portions normal caliber. ASCITES: None seen. IMPRESSION: Normal sonographic appearance of the right upper quadrant. DATA REPOSITORY:
== END 2024-04-08 02:59 ==
LOC: DI 02:39
PROVIDERS: PCP Nurse Practitioner Family; Visit Provider Nurse Practitioner Family
DX: R10.11 Right upper quadrant pain (principal)
CPT/HCPCS: 76705

== ENCOUNTER 2024-04-16 15:12 | Outpatient (REF) | payer MEDICARE, BC, SELFPAY ==
[2024-04-16 14:26] LABS: Creatinine,Urine 19.78 mg/dL
[2024-04-16 14:27] LABS: Creatinine,24hr Ur 0.69 g/24hr (0.60-1.80); Total Volume 3500 ml
[2024-04-17 09:26] LABS: Calcium Urine 7.2 mg/dL (See Note); Calcium Urine 24 hr 252 mg/24hr (100-300); Timed Urine Volume 3500 mL
== END 2024-04-16 15:13 | disposition home or self-care (01) ==
LOC: LBN 15:12
PROVIDERS: PCP Nurse Practitioner Family; Visit Provider Internal Medicine Endocrinology, Diabetes & Metabolism
DX: M54.50 Low back pain, unspecified (principal); Z73.6 Limitation of activities due to disability; M81.0 Age-related osteoporosis without current pathological fracture
CPT/HCPCS: 81050; 82340; 82570

== ENCOUNTER 2024-04-28 12:00 | Outpatient (REF) | payer MEDICARE, BC, SELFPAY ==
[2024-04-29 10:16] LABS: EBNA IgG Positive (Negative); EBV Interpretation (See Note); VCA IgG Positive (Negative); VCA IgM Negative (Negative)
== END 2024-04-28 12:01 | disposition home or self-care (01) ==
LOC: NCHCN 12:00
PROVIDERS: PCP Nurse Practitioner Family; Visit Provider Family Medicine
DX: R53.83 Other fatigue (principal)
CPT/HCPCS: 86664; 86665

== ENCOUNTER → 2024-07-23 09:55 | Outpatient (BNVA) | payer MEDICARE, BC, SELFPAY | PROVIDERS: PCP Nurse Practitioner Family; Referring Provider Nurse Practitioner Family; Visit Provider Podiatrist | DX: L60.0 Ingrowing nail (principal); G62.9 Polyneuropathy, unspecified; M67.01 Short Achilles tendon (acquired), right ankle | CPT/HCPCS: 99213 ==

== ENCOUNTER 2024-09-16 15:39 | Outpatient (REF) | payer MEDICARE, BC, SELFPAY ==
[2024-09-16 15:36] LABS: Calculated LDL 127 mg/dL (<100); Cholesterol 236 mg/dL (<200); HDL Cholesterol 98 mg/dL (>or=50); Triglyceride 57 mg/dL (<150)
[2024-09-18 15:10] LABS: Measles (Rubeola), IgM Negative (Negative)
== END 2024-09-16 15:40 | disposition home or self-care (01) ==
LOC: NCHCN 15:39
PROVIDERS: PCP Nurse Practitioner Family; Visit Provider Nurse Practitioner Family
DX: Z13.220 Encounter for screening for lipoid disorders (principal)
CPT/HCPCS: 80061; 86765

== ENCOUNTER 2024-09-29 16:24 | Outpatient (REF) | payer MEDICARE, BC, SELFPAY | END 2024-09-29 16:25 | disposition home or self-care (01) | LOC: NCHCN 16:24 | PROVIDERS: PCP Nurse Practitioner Family; Visit Provider Nurse Practitioner Family | DX: Z78.9 Other specified health status (principal) | CPT/HCPCS: 86765 ==

== ENCOUNTER → 2024-10-13 07:59 | Outpatient (BNVA) | payer MEDICARE, BC, SELFPAY | PROVIDERS: PCP Nurse Practitioner Family; Referring Provider Nurse Practitioner Family; Visit Provider Podiatrist | DX: L60.0 Ingrowing nail (principal); G62.9 Polyneuropathy, unspecified; M67.01 Short Achilles tendon (acquired), right ankle | CPT/HCPCS: 99215 ==

== ENCOUNTER → 2024-11-17 07:59 | Outpatient (BNVA) | payer MEDICARE, BC, SELFPAY | PROVIDERS: PCP Nurse Practitioner Family; Referring Provider Nurse Practitioner Family; Visit Provider Podiatrist | DX: L60.0 Ingrowing nail (principal); G62.9 Polyneuropathy, unspecified; M67.01 Short Achilles tendon (acquired), right ankle | CPT/HCPCS: 99215 ==

== ENCOUNTER 2024-12-30 15:34 | Outpatient (REF) | payer MEDICARE, BC, SELFPAY ==
[2024-12-30 14:25] LABS: Abs Immature Grans 0.01 10^3/uL (0.0-0.06); HCT 41.5 % (36.0-46.0); HGB 14.2 g/dL (11.2-15.7); Immature Grans % 0.2 %; MCH 30.7 pg (27.0-33.0); MCHC 34.2 % (32.0-36.0); MCV 90 fL (80-95); MPV 9.6 fL (8.0-11.0); Platelet Count 271 10^3/uL (130-400); RBC 4.63 10^6/uL (3.93-5.22); RDW 12.1 % (11.7-14.6); RDW-SD 39.7 fL; WBC 4.73 10^3/uL (4.4-10.8)
[2024-12-30 14:47] LABS: ALT 28 U/L (14-59); AST 23 U/L (15-37); Albumin 4.1 g/dL (3.4-5.0); Alkaline Phosphatase 75 U/L (46-116); Anion Gap 5.7 mmol/L (3-11); BUN 9 mg/dL (7-18); Bilirubin, Total 0.7 mg/dL (0.2-1.0); CO2 31.3 mmol/L (21.0-32.0); Calcium 9.1 mg/dL (8.5-10.1); Chloride 91 mmol/L (98-107); Glucose 94 mg/dL (74-106); Potassium 4.3 mmol/L (3.5-5.1); Sodium 128 mmol/L (136-145); TSH (W/Ref FT4) 1.82 uIU/mL (0.36-3.74); Total Protein 7.4 g/dL (6.4-8.2)
[2024-12-30 14:51] LABS: Iron 148 ug/dL (50-170); Total Iron Binding Capacity 390 ug/dL (250-450); Transferrin Sat 38 % (15-50)
== END 2024-12-30 15:35 | disposition home or self-care (01) ==
LOC: NCHCN 15:34
PROVIDERS: PCP Nurse Practitioner Family; Visit Provider Nurse Practitioner Family
DX: G43.709 Chronic migraine without aura, not intractable, without status migrainosus (principal)
CPT/HCPCS: 80053; 83540; 83550; 84443; 85025

== ENCOUNTER 2025-01-01 16:54 | Outpatient (REF) | payer MEDICARE, BC, SELFPAY ==
[2025-01-01 21:01] LABS: Anion Gap 6.3 mmol/L (3-11); BUN 12 mg/dL (7-18); CO2 31.7 mmol/L (21.0-32.0); Calcium 8.9 mg/dL (8.5-10.1); Chloride 94 mmol/L (98-107); Glucose 93 mg/dL (74-106); Potassium 4.3 mmol/L (3.5-5.1); Sodium 132 mmol/L (136-145)
== END 2025-01-01 16:55 | disposition home or self-care (01) ==
LOC: NCHCN 16:54
PROVIDERS: PCP Nurse Practitioner Family; Visit Provider Nurse Practitioner Family
DX: E87.1 Hypo-osmolality and hyponatremia (principal)
CPT/HCPCS: 80048

== ENCOUNTER → 2025-01-05 08:49 | Outpatient (BNVA) | payer MEDICARE, BC, SELFPAY | PROVIDERS: PCP Nurse Practitioner Family; Referring Provider Nurse Practitioner Family; Visit Provider Podiatrist | DX: L60.0 Ingrowing nail (principal) | CPT/HCPCS: 11750 ==

== ENCOUNTER 2025-01-13 14:49 | Outpatient (REF) | payer MEDICARE, BC, SELFPAY ==
[2025-01-13 15:08] LABS: Sodium 126 mmol/L (136-145)
[2025-01-13 21:17] LABS: Sodium, Urine 26 mmol/L
[2025-01-14 19:35] LABS: Osmolality, Urine 231 mOsm/kg (150-1150)
== END 2025-01-13 14:50 | disposition home or self-care (01) ==
LOC: NCHCN 14:49
PROVIDERS: PCP Nurse Practitioner Family; Visit Provider Nurse Practitioner Family
DX: E87.1 Hypo-osmolality and hyponatremia (principal)
CPT/HCPCS: 83935; 84295; 84300

== ENCOUNTER → 2025-02-03 08:38 | Outpatient (BNVA) | payer MEDICARE, BC, SELFPAY | PROVIDERS: PCP Nurse Practitioner Family; Referring Provider Nurse Practitioner Family; Visit Provider Podiatrist | DX: L60.0 Ingrowing nail (principal); M79.671 Pain in right foot | CPT/HCPCS: 99212 ==

== ENCOUNTER 2025-02-05 01:33 | Outpatient (CLI) | payer MEDICARE, BC, SELFPAY ==
[2025-02-05 09:05] LABS: Sodium 131 mmol/L (136-145)
== END 2025-02-05 01:34 | disposition home or self-care (01) ==
LOC: LBO 01:33
PROVIDERS: PCP Nurse Practitioner Family; Visit Provider Nurse Practitioner Family
DX: E87.1 Hypo-osmolality and hyponatremia (principal)
CPT/HCPCS: 36415; 82533; 84295

== ENCOUNTER 2025-02-19 08:16 | Emergency (ER) | payer MEDICARE, BC, SELFPAY ==
[2025-02-19] VITALS (25 sets, daily range): BP systolic 169–212; BP diastolic 91–120; PULSE 64–79; RESP 10–19; TEMP 36.5; O2SAT 95–98
--- NOTE | 2025-02-19 08:15 | RT.EKG_ITS ---
APPROVED REPORT Exam: Resting ECG Reason for Exam: weakness Patient Location: E HR:67 bpm ECG Measurements Heart Rate 67 AXIS AZ 151 P 64 QRSd 81 QRS 40 QT 394 T -55 QTc 415 Conclusion Sinus rhythm...normal P axis, V-rate 60- 99 Probable left atrial enlargement...P >50mS, <-0.10mV V1 Borderline T abnormalities, diffuse leads...T flat/neg No Occlusion IL
--- NOTE | 2025-02-19 08:27 | W.ED.GENAD ---
Discharge Plan Disposition Patient Disposition: Home Condition: Stable Discharge Details Clinical Impression: Gastroenteritis, Hypokalemia, Chronic hyponatremia Primary Care Provider: Cesia London ED Provider: Willow Dailey Home Meds and New Rx's Prescriptions: No Action losartan 25 mg tablet 12.5 mg PO DAILY neomycin-polymyxin B-dexameth [Maxitrol] 3.5mg/mL-10,000 unit/mL-0.1 % drops,suspension See Rx Instructions .Route Q12H Qty: 5 0RF Rx Instructions: Apply to the toe every 12 hours; Apply to the TOE. Do NOT apply to eyes. Discard once the toe is healed. multivitamin [Daily Multi-Vitamin] Tablet 1 tab PO DAILY sumatriptan succinate 25 mg tablet 50 mg PO PRN levothyroxine [Synthroid] 50 mcg tablet 125 mcg PO DAILY gabapentin 100 mg capsule 200 mg PO QHS Patient Comments: Take 2 at night to help sleep Discharge Instructions Instructions: Hypokalemia, High Potassium Diet Additional Instructions: Please call your primary care provider first thing Saturday or this afternoon to schedule a follow-up appointment early next week. Your workup today was reassuring, however your potassium was low. I recommend that you increase your consumption of potassium rich foods. Stay well-hydrated, drinking plenty of fluids throughout the day such as Pedialyte or Gatorlyte. Gentle foods such as chicken no soup, applesauce, bananas, and toast may be helpful. Return to emergency care if you develop new abdominal pain, fever, uncontrollable vomiting, new severe headache, trouble staying hydrated, episodes of passing out, or if you are very worried and need to be rechecked again immediately Stand Alone Forms: Portal Information Referrals: Cesia London [Primary Care Provider, Medicine] HPI General Date/Time Provider Initiated Documentation: 02/19/25 08:20. HPI Narrative: Yeimi is a 74-year-old female who presents to the emergency department today for evaluation of generalized feeling of unwellness, including chills, general malaise, frontal headaches, nausea/vomiting, decreased appetite, and diarrhea. She reports that last night she think she may have had some blood-tinged stool (diarrhea). Denies recorded fevers, vision changes, congestion, sore throat, cough, chest pain, difficulty breathing, abdominal pain, change in urine output. Has not taken her medications since Saturday (losartan, levothyroxine). Has been able to take Tylenol and ibuprofen, most recently taken this morning between 4 and 6 AM. Denies history of abdominal surgeries. PMH significant for hypertension, hypothyroidism, hyponatremia (unknown etiology), and lightheadedness attributed to dysautonomia (has an appointment with neurology this spring). Related Data Home Medications ?Medication ?Instructions ?Recorded ?Confirmed levothyroxine 50 mcg tablet 125 mcg PO DAILY 03/02/20 02/19/25 (Synthroid) multivitamin (Daily Multi-Vitamin 1 tab PO DAILY 04/14/20 02/19/25 tablet) losartan 25 mg tablet 12.5 mg PO DAILY 01/11/22 02/19/25 [id number] 3.5 See Rx Instructions .Route Q12H #5 01/05/25 02/19/25 mg/mL-10,000 unit/mL-0.1% eye mL drops (Maxitrol) sumatriptan succinate 25 mg tablet 50 mg PO PRN 02/03/25 02/19/25 gabapentin 100 mg capsule 200 mg PO QHS 02/19/25 02/19/25 Previous Rx's ?Medication ?Instructions ?Recorded [id number] 3.5 See Rx Instructions .Route Q12H #5 01/05/25 mg/mL-10,000 unit/mL-0.1% eye mL drops (Maxitrol) Allergies Allergy/AdvReac Type Severity Reaction Status Date / Time amlodipine Allergy Unknown Unknown Verified 02/19/25 08:26 General Stated Complaint: Nausea/Vomit/Diar BREE: 3 Exam Const General: cooperative and comfortable Nutritional Appearance: average body habitus Orientation: alert and oriented x3 HENMT Head: normal to inspection Face and sinus: dry mucous membranes (slightly tacky) Resp Effort & Inspection: normal respiratory effort, able to speak in complete sentences and no cough Auscultation: clear to auscultation bilaterally Cardio Rate: regular rate Rhythm: regular rhythm GI Inspection: normal to inspection, non-distended and no obesity Palpation: soft and nontender Rectal Exam - female: visual inspection normal, normal sphincter tone, No fecal impaction and No tenderness Back/Spine/Pelvis Back: no CVA tenderness Skin General skin exam: no rashes or lesions noted Trauma: no lacerations or abrasions Neuro General: patient alert, patient oriented x3, gait normal, tone normal and moves all extremities Cranial Nerves: facial strength normal Speech: speech normal Motor: muscle tone normal throughout Extrem General: no pedal edema Course Vital Signs Vital signs: Vital Signs Temperature 36.5 C 02/19/25 08:19 Pulse 68 02/19/25 08:19 Respiratory Rate 15 02/19/25 08:19 Blood Pressure 207/120 H 02/19/25 08:19 Pulse Oximetry 97 02/19/25 08:19 Temperature 36.5 C 02/19/25 08:24 Temperature Source Oral 02/19/25 08:24 Pulse 68 02/19/25 08:24 Respiratory Rate 15 02/19/25 08:24 Blood Pressure 207/120 H 02/19/25 08:24 Blood Pressure Position Supine 02/19/25 08:24 Pulse Oximetry 97 02/19/25 08:24 Oxygen Delivery Method Room Air 02/19/25 08:24 Oxygen Flow Rate 0 02/19/25 08:24 Pain Level 9 02/19/25 08:24 Medical Decision Making Yeimi is a 74-year-old female who presents to the emergency department today for evaluation of generalized feeling of unwellness, including chills, general malaise, frontal headaches, nausea/vomiting (no vomiting in last 1-2 days, but persistent nausea making hydration difficult), decreased appetite, and diarrhea. She reports that last night she think she may have had some blood-tinged stool (diarrhea). Denies recorded fevers, vision changes, congestion, sore throat, cough, chest pain, difficulty breathing, abdominal pain, change in urine output. Has not taken her medications since Saturday (losartan, levothyroxine). Has been able to take Tylenol and ibuprofen, most recently taken this morning between 4 and 6 AM. Denies history of abdominal surgeries. PMH significant for hypertension, hypothyroidism, hyponatremia (unknown etiology), and lightheadedness attributed to dysautonomia (has an appointment with neurology this spring). Physical exam remarkable for pale and tired appearing female who appears stated age. Slightly tacky mucous membranes. Easy work of breathing, lung sounds clear bilaterally. Normal heart sounds, regular rate and rhythm, no murmurs. Abdomen soft, nondistended, nontender to palpation. Rectal exam performed, no acute abnormalities/rectal tenderness or blood on glove noted. Moving all extremities equally. Able to ambulate without difficulty. DDx includes but is not limited to: Viral gastroenteritis, anemia, dehydration, complications of dehydration such as [place] or electrolyte imbalance, migraine headaches. No red flags concerning for bowel obstruction/acute surgical abdomen or active GI bleed at this time (1 episode of possibly reddish stool, no abdominal pain or repeat episodes of bleeding, will continue to monitor in ED). History and presentation not consistent with ACS. Patient does not meet SIRS criteria. Vital signs notable for hypertension, BP 207/120; patient has not taken her antihypertensives in 5 days. While in the emergency department Yeimi received IV normal saline for hydration, as well as Reglan/Benadryl, toradol, and dexamethasone for headache and nausea. Home meds ordered for administration after patient is able to tolerate p.o. potassium supplementation given IV. I independently interpreted the following tests: EKG notable for normal sinus rhythm, rate 67, flat/inverted T waves noted diffusely, no changes consistent with acute ischemia. CMP notable for hypokalemia (K 3.0), hyponatremia 129 (c/w baseline). CBC reassuring (no anemia or leukocytosis) and COVID/flu/RSV negative. Yeimi reports her nausea has resolved and headache is improved (now rated 2/10 from 8/10), she has been able to tolerate p.o. marisa sandeep and crackers and says she is feeling significantly better and ready to go home. History and presentation consistent with probable viral gastroenteritis with hypokalemia. Reviewed discharge instructions with patient, including symptomatic management, importance of follow-up with PCP, and red flags indicating need for return to emergency care. She voices agreement plan of care. [facility] All Active Problems (Updated 02/19/25 @ 09:40 by Willow Lemons) Chronic hyponatremia (Acute) Hypokalemia (Acute) Gastroenteritis (Acute) Pain in right foot (Acute) Achilles tendon contracture, right (Acute) Neuropathy (Acute) Lesion of bone of right lower leg (Acute) Right tibia Right patella fracture (Acute 02/17/20) S/P colonoscopy (Acute ~01/07/18) screening colonoscopy with 10 year recall. Normal colonoscopy (Acute ~01/07/18) Encounter for screening colonoscopy (Acute) Medical History Instability of knee joint Osteopenia Hypothyroid Low back pain Chronic hip pain Surgical History H/O colonoscopy (08/15/06) 08/15/06, Dr Peter, normal colonoscopy, repeat in ten years Social History Smoking/Tobacco Use Status: Never Smoking risk assessment performed?: Yes Alcohol Intake: current Alcohol Intake frequency: a few times a month Alcohol type: beer and wine Drug use: Never Substance use type: does not use Housing: house Current gender identity: female
[2025-02-19] MEDS: diphenhydrAMINE 50 MG/ML VIAL 25 MG IVP (08:53)
[2025-02-19] MEDS: Metoclopramide 10 MG/2 ML VIAL IVP (08:54)
[2025-02-19] MEDS: Normal Saline 1,000 ML 1000 ML IV (08:54)
[2025-02-19] MEDS: Normal Saline 50 ML 100 ML (08:55)
[2025-02-19] MEDS: Normal Saline Flush 10 ML SYR IVP (09:02)
[2025-02-19 09:03] LABS: Abs Immature Grans 0.01 10^3/uL (0.0-0.06); HCT 41.5 % (36.0-46.0); HGB 14.8 g/dL (11.2-15.7); Immature Grans % 0.1 %; MCH 30.9 pg (27.0-33.0); MCHC 35.7 % (32.0-36.0); MCV 87 fL (80-95); MPV 9.1 fL (8.0-11.0); Platelet Count 263 10^3/uL (130-400); RBC 4.79 10^6/uL (3.93-5.22); RDW 11.8 % (11.7-14.6); RDW-SD 37.5 fL; WBC 6.69 10^3/uL (4.4-10.8)
[2025-02-19 09:18] LABS: Magnesium 2.1 mg/dL (1.6-2.6)
[2025-02-19 09:19] LABS: ALT 15 U/L (10-49); AST 21 U/L (<34); Albumin 4.3 g/dL (3.2-5.0); Alkaline Phosphatase 69 U/L (46-116); Anion Gap 9.1 mmol/L (3-11); BUN 17 mg/dL (9-23); Bilirubin, Total 1.1 mg/dL (0.2-1.2); CO2 28.4 mmol/L (20.0-31.0); Calcium 8.8 mg/dL (8.3-10.6); Chloride 92 mmol/L (98-107); Glucose 109 mg/dL (74-106); Potassium 3.0 mmol/L (3.5-5.1); Sodium 129 mmol/L (136-145); Total Protein 7.0 g/dL (5.7-8.2)
[2025-02-19 09:21] LABS: COVID-19 PCR Negative (Negative); RSV PCR Negative (Negative)
[2025-02-19 09:23] LABS: TSH (W/Ref FT4) 6.56 uIU/mL (0.55-4.78)
[2025-02-19] MEDS: Levothyroxine 125 MCG TAB PO (09:40)
[2025-02-19] MEDS: POTASSIUM CHLORIDE 20 MEQ/100 ML BAG 50 MEQ IV INF (09:40)
[2025-02-19] MEDS: Losartan 50 MG TAB 12.5 MG PO (09:40)
[2025-02-19] MEDS: Ketorolac 15 MG/ML VIAL IVP (09:55)
[2025-02-19] MEDS: Dexamethasone 4 MG/ML VIAL IVP (09:56)
== END 2025-02-19 11:54 | disposition home or self-care (01) ==
PROVIDERS: Emergency Provider Nurse Practitioner Family; PCP Nurse Practitioner Family
DX: K52.9 Noninfective gastroenteritis and colitis, unspecified (principal); E87.6 Hypokalemia; E87.1 Hypo-osmolality and hyponatremia
CPT/HCPCS: 99284 ×2; 36415; 96375; 80053; 87637; 93005; 96361; 96365; 96366; 83735; 84439; 84443; 85025; 93010; J1100; J1200; J1885; J2765; J3480